=== PATIENT | male | born 1960 | race Caucasian/White ===

== ENCOUNTER 2020-03-23 14:13 | Outpatient (REF) | payer OTHER, SELFPAY ==
[2020-03-23 17:10] LABS: Alanine Aminotransferase 26 U/L (0-40); Albumin Level 4.2 g/dL (3.5-5.0); Alkaline Phosphatase 119 U/L (39-117); Aspartate Amino Transferase 21 U/L (5-37); Bilirubin Direct 0.2 mg/dL (0.0-0.5); Bilirubin Total 0.5 mg/dL (0.0-1.0); Total Protein 6.9 g/dL (6.5-8.0)
== END 2020-03-23 14:14 | disposition home or self-care (01) ==
LOC: HO.HMGCLDS 14:13
PROVIDERS: PCP Nurse Practitioner Family; Visit Provider Podiatrist
DX: B35.1 Tinea unguium (principal)
CPT/HCPCS: 80076

== ENCOUNTER 2020-06-30 13:30 | Outpatient (REF) | payer OTHER, SELFPAY ==
[2020-06-30 17:02] LABS: Glucose Urine UA NEG (NEG); Leukocyte Esterase Urine NEG (NEG); Nitrite Urine NEG (NEG); Specific Gravity - Urine 1.025 (1.005-1.025); Urine Blood NEG (NEG); Urine Ketones NEG (NEG); Urine Protein NEG (NEG-TRACE)
[2020-06-30 17:04] LABS: Appearance Urine CLEAR; Color Urine YELLOW
[2020-06-30 17:33] LABS: RBC Urine 0-2 /HPF (0); WBC Urine 0 /HPF (0-4)
== END 2020-06-30 13:31 | disposition home or self-care (01) ==
LOC: HO.HMGCLDS 13:30
PROVIDERS: PCP Nurse Practitioner Family; Visit Provider Nurse Practitioner Family
DX: R31.29 Other microscopic hematuria (principal)
CPT/HCPCS: 81001; 87086

== ENCOUNTER 2020-12-19 15:12 | Outpatient (REF) | payer OTHER, SELFPAY ==
[2020-12-19 16:55] LABS: Glucose Urine UA NEG (NEG); Leukocyte Esterase Urine NEG (NEG); Nitrite Urine NEG (NEG); Specific Gravity - Urine >= 1.030 (1.005-1.025); Urine Blood NEG (NEG); Urine Ketones NEG (NEG); Urine Protein NEG (NEG-TRACE)
[2020-12-19 16:59] LABS: Appearance Urine CLEAR; Color Urine YELLOW
[2020-12-19 17:00] LABS: Alanine Aminotransferase 37 U/L (0-40); Albumin Level 4.3 g/dL (3.5-5.0); Alkaline Phosphatase 108 U/L (39-117); Anion Gap 13 (12-20); Aspartate Amino Transferase 30 U/L (5-37); Bilirubin Total 0.8 mg/dL (0.0-1.0); Blood Urea Nitrogen 16 mg/dL (9-16); Calcium 9.2 mg/dL (8.4-10.2); Carbon Dioxide 23 mmol/L (22-29); Chloride 105 mmol/L (96-108); Cholesterol 141 mg/dL; Estimated Glomerular Filt Rate > 60; Glucose Fasting 83 mg/dL (60-99); HDL Cholesterol 36 mg/dL; LDL Cholesterol Calculated 82 mg/dl; Potassium 4.3 mmol/L (3.3-5.1); Sodium 137 mmol/L (135-145); Total Protein 6.9 g/dL (6.5-8.0); Triglycerides 118 mg/dL
[2020-12-19 17:38] LABS: Prostate Specific Antigen Scr 4.29 ng/mL (<0.05-4.0); TSH reflex Free T4 0.99 uIU/mL (0.32-4.0)
== END 2020-12-19 15:13 | disposition home or self-care (01) ==
LOC: HO.HMGCLDS 15:12
PROVIDERS: PCP Nurse Practitioner Family; Visit Provider Nurse Practitioner Family
DX: Z00.00 Encounter for general adult medical examination without abnormal findings (principal); Z12.5 Encounter for screening for malignant neoplasm of prostate
CPT/HCPCS: 36415; 80053; 80061; 81003; 84153; 84443

== ENCOUNTER 2020-12-29 14:24 | Outpatient (REF) | payer OTHER, SELFPAY ==
--- NOTE | ~2020-12-29 | US_ITS ---
EXAMINATION: US SCROTUM CLINICAL INFORMATION: Benign cyst of testis. COMPARISON: None TECHNIQUE: A sonogram of the scrotum was performed assessing loyola-scale appearance and color Doppler flow. Spectral Doppler analysis of the arterial and venous flow were performed in the testes bilaterally. FINDINGS: RIGHT: Right testicle measures 3.6 x 2.3 x 2.9 cm, volume 12.6 mL. There are 4 small echogenic foci suggestive of calcification, largest measuring 2 mm. No other focal testicular lesion is seen. Spectral Doppler analysis of the arterial and venous flow is normal in the right testis. Right epididymal head is normal in size. No right varicocele or hydrocele is seen. Right epididymal Doppler flow is normal. LEFT: Left testicle measures 4.1 x 2.4 x 3.1 cm, volume 16.0 mL. There are 2 small echogenic foci suggestive of calcifications. The largest measure 2 mm. Spectral Doppler analysis of the arterial and venous flow is normal in the left testis. Left epididymal head is normal in size. No left varicocele or hydrocele is seen. Left epididymal Doppler flow is normal. US/US scrotum IMPRESSION: No testicular or scrotal cyst seen. Small bilateral testicular calcifications.
== END 2020-12-29 14:25 | disposition home or self-care (01) ==
LOC: HO.HMGCX 14:24
PROVIDERS: PCP Nurse Practitioner Family; Visit Provider Nurse Practitioner Family
DX: N44.2 Benign cyst of testis (principal)
CPT/HCPCS: 76870

== ENCOUNTER → 2021-05-04 09:41 | Outpatient (BNVA) | payer OTHER, SELFPAY | PROVIDERS: PCP Nurse Practitioner Family; Visit Provider Urology ==

== ENCOUNTER 2021-06-28 14:13 | Outpatient (REF) | payer OTHER, SELFPAY ==
[2021-06-28 15:55] LABS: PSA,Total (Free>4and<10) 5.31 ng/mL (0.00-4.00)
[2021-06-29 12:40] LABS: Free Prostate Spec Ag 0.4 ng/mL; Percent Free Prostate Spec Ag 9 % (calc) (>25); Prostate Specific Ag Total 4.5 ng/mL (< OR = 4.0)
== END 2021-06-28 14:14 | disposition home or self-care (01) ==
LOC: HO.LAB 14:13
PROVIDERS: PCP Nurse Practitioner Family; Visit Provider Urology
DX: Z12.5 Encounter for screening for malignant neoplasm of prostate (principal); R97.20 Elevated prostate specific antigen [PSA]
CPT/HCPCS: 36415; 84153; 84154

== ENCOUNTER → 2021-07-14 14:50 | Outpatient (BNVA) | payer OTHER, SELFPAY | PROVIDERS: PCP Nurse Practitioner Family; Visit Provider Urology | DX: R97.20 Elevated prostate specific antigen [PSA] (principal) | CPT/HCPCS: Q3014 ==

== ENCOUNTER 2021-08-10 07:22 | Outpatient (REF) | payer OTHER, SELFPAY ==
[2021-08-10 07:51] VITALS: BP 148/92; PULSE 82; RESP 16; TEMP 36.6; O2SAT 96
[2021-08-10 07:52] VITALS: BMI 36.1
--- NOTE | 2021-08-10 08:17 | W.PM.OPN ---
Operative Note Operative Note Date of Service: 08/10/21 Narrative: Preoperative diagnosis: Elevated PSA Postoperative diagnosis: Elevated PSA Procedure: 1. transrectal ultrasound measurement of prostate 2. transrectal ultrasound-guided pudendal nerve block 3. transrectal ultrasound-guided prostate biopsy 12 core Surgeon: Dr. Raul Alcantara Anesthetic: Local Indications for procedure: Elevated PSA Prostate Cancer Procedure: After informed consent was verified, the patient was brought into the procedure area and lay left-hand side down on the table. Patient identity confirmed. Perioperative antibiotics confirmed. Iodine 10cc with Gel was placed per rectum Ultrasound probe was placed per rectum The prostate was measured in 3 dimensions Total volume equals 45 gm There were calcifications present in central zone - no cystic structures - prostate was homogeneous in nature A ultrasound-guided pudendal nerve block was performed using 10 cc of 1% lidocaine. 8 cc was placed at the base and 2 cc of the apex. A 12 core biopsy was performed with 6 cores each side. Two cores were taken at the apex, mid and base. Cores were spaced between lateral and medial. He tolerated the procedure well. Was able to ambulate to bathroom after 5 minutes. Printed instructions regarding antibiotic use and common side effects such as low-grade temperature and bleeding were given Pathology: 12 core prostate biopsy.
[2021-08-10 08:30] VITALS: BP 143/88; PULSE 82; RESP 16; O2SAT 96
== END 2021-08-10 07:23 | disposition home or self-care (01) ==
LOC: HO.MS 07:22
PROVIDERS: PCP Nurse Practitioner Family; Visit Provider Urology
PROC: (CPT 55700; principal; 2021-08-10 08:00)
DX: R97.20 Elevated prostate specific antigen [PSA] (principal)
CPT/HCPCS: 55700; 76942; 88305; 88342

== ENCOUNTER → 2021-08-18 11:52 | Outpatient (BNVA) | payer OTHER, SELFPAY | PROVIDERS: PCP Nurse Practitioner Family; Visit Provider Urology | DX: Z13.89 Encounter for screening for other disorder (principal) ==

== ENCOUNTER 2022-02-16 06:02 | Outpatient (REF) | payer OTHER, SELFPAY ==
[2022-02-16 06:07] LABS: MANUAL DIFF FLAG NO
[2022-02-16 07:12] LABS: Basophils Absolute Auto 0.1 X10*3/uL (0.0-0.2); Eosinophils Absolute Auto 0.9 X10*3/uL (0.0-0.4); Eosinophils Percent Auto 11.2 % (0-4); Hematocrit 46.9 % (42.0-52.0); Hemoglobin 15.4 g/dl (14.0-18.0); Imm Gran Abs Auto 0.02 X10*3/uL (0.00-0.03); Imm Gran Pct Auto 0.2 % (0.0-0.4); Lymphocytes Absolute Auto 2.4 X10*3/uL (1.2-4.9); Lymphocytes Percent Auto 29.5 % (20-40); Mean Corpuscular HGB Conc 32.8 g/dl (31.0-36.0); Mean Corpuscular Hemoglobin 29.6 pg (27.0-33.0); Mean Corpuscular Volume 90.2 fL (80.0-98.0); Mean Platelet Volume 9.6 fL (9.4-12.4); Monocytes Absolute Auto 0.8 X10*3/uL (0.1-1.2); Monocytes Percent Auto 9.7 % (2-11); Neutrophils Absolute Auto 3.9 x10*3/uL (2.0-8.3); Neutrophils Percent Auto 48.4 % (45-73); Platelet Count 298 X10*3/uL (160-400); Red Cell Distribution Width 12.3 % (11.0-16.0)
[2022-02-16 07:38] LABS: Appearance Urine Clear; Color Urine Yellow; Glucose Urine UA Negative (Negative); Leukocyte Esterase Urine Negative (Negative); Nitrite Urine Negative (Negative); PH 5.5 (5.0-9.0); Specific Gravity - Urine >= 1.030 (1.005-1.025); Urine Blood Negative (Negative); Urine Ketones Negative (Negative); Urine Protein Negative (Neg-Trace)
[2022-02-16 07:52] LABS: Alanine Aminotransferase 22 U/L (0-40); Albumin Level 4.2 g/dL (3.5-5.0); Alkaline Phosphatase 107 U/L (39-117); Anion Gap 14 (12-20); Aspartate Amino Transferase 23 U/L (5-37); Bilirubin Total 0.5 mg/dL (0.0-1.0); Blood Urea Nitrogen 17 mg/dL (9-16); Calcium 9.4 mg/dL (8.4-10.2); Carbon Dioxide 23 mmol/L (22-29); Chloride 105 mmol/L (96-108); Cholesterol 140 mg/dL; Estimated Glomerular Filt Rate > 60; Glucose Fasting 89 mg/dL (60-99); HDL Cholesterol 36 mg/dL; LDL Cholesterol Calculated 84 mg/dl; Potassium 4.4 mmol/L (3.3-5.1); Sodium 138 mmol/L (135-145); Total Protein 6.8 g/dL (6.5-8.0); Triglycerides 102 mg/dL
[2022-02-16 08:13] LABS: TSH reflex Free T4 1.03 uIU/mL (0.32-4.0)
== END 2022-02-16 06:03 | disposition home or self-care (01) ==
LOC: HO.LAB 06:02
PROVIDERS: Absent Provider Urology; PCP Nurse Practitioner Family; Visit Provider Nurse Practitioner Family
DX: Z12.5 Encounter for screening for malignant neoplasm of prostate (principal); N40.1 Benign prostatic hyperplasia with lower urinary tract symptoms; N13.8 Other obstructive and reflux uropathy; I10 Essential (primary) hypertension
CPT/HCPCS: 36415; 80053; 80061; 81003; 84153; 84443; 85025

== ENCOUNTER → 2022-02-22 08:24 | Outpatient (BNVA) | payer OTHER, SELFPAY | PROVIDERS: PCP Nurse Practitioner Family; Visit Provider Urology | DX: R97.20 Elevated prostate specific antigen [PSA] (principal); N40.1 Benign prostatic hyperplasia with lower urinary tract symptoms; N13.8 Other obstructive and reflux uropathy; I10 Essential (primary) hypertension; I60.9 Nontraumatic subarachnoid hemorrhage, unspecified | CPT/HCPCS: 51798 ==

== ENCOUNTER 2022-08-03 06:02 | Outpatient (REF) | payer OTHER, SELFPAY ==
[2022-08-03 08:16] LABS: Alanine Aminotransferase 39 U/L (0-40); Albumin Level 4.1 g/dL (3.5-5.0); Alkaline Phosphatase 100 U/L (39-117); Anion Gap 11 (12-20); Aspartate Amino Transferase 26 U/L (5-37); Bilirubin Total 0.5 mg/dL (0.0-1.0); Blood Urea Nitrogen 19 mg/dL (9-16); Calcium 9.4 mg/dL (8.4-10.2); Carbon Dioxide 25 mmol/L (22-29); Chloride 109 mmol/L (96-108); Cholesterol 149 mg/dL; Estimated Glomerular Filt Rate > 60; Glucose Fasting 90 mg/dL (60-99); HDL Cholesterol 36 mg/dL; LDL Cholesterol Calculated 86 mg/dl; Potassium 4.5 mmol/L (3.3-5.1); Sodium 140 mmol/L (135-145); Total Protein 6.4 g/dL (6.5-8.0); Triglycerides 136 mg/dL
[2022-08-03 08:33] LABS: TSH reflex Free T4 1.33 uIU/mL (0.32-4.0)
[2022-08-03 08:35] LABS: Prostate Specific Antigen 0.96 ng/mL (<0.05-4.0)
[2022-08-03 09:52] LABS: Color Urine Yellow; Glucose Urine UA Negative (Negative); Leukocyte Esterase Urine Negative (Negative); Nitrite Urine Negative (Negative); Urine Blood Negative (Negative); Urine Ketones Negative (Negative); Urine Protein Negative (Neg-Trace)
[2022-08-03 10:01] LABS: Appearance Urine Clear
== END 2022-08-03 06:03 | disposition home or self-care (01) ==
LOC: HO.LAB 06:02
PROVIDERS: Absent Provider Urology; PCP Nurse Practitioner Family; Visit Provider Nurse Practitioner Family
DX: R97.20 Elevated prostate specific antigen [PSA] (principal); I10 Essential (primary) hypertension; Z12.5 Encounter for screening for malignant neoplasm of prostate
CPT/HCPCS: 36415; 80053; 80061; 81003; 84153; 84443

== ENCOUNTER → 2022-08-21 10:54 | Outpatient (BNVA) | payer OTHER, SELFPAY | PROVIDERS: PCP Nurse Practitioner Family; Visit Provider Urology | DX: Z13.89 Encounter for screening for other disorder (principal) ==

== ENCOUNTER 2022-12-26 11:28 | Outpatient (AMB) | payer OTHER, SELFPAY ==
[2022-12-26 11:37] VITALS: BP 140/86; PULSE 84; O2SAT 94; BMI 36.8
--- NOTE | 2022-12-26 11:37 | MHC.PC.OV ---
Vital Signs 12/26/22 11:37 Height 5 ft 10 in Weight 256 lb 4 oz BMI 36.8 BP 140/86 H Blood Pressure Location Lt brachial Position Sitting Pulse 84 Pulse Source Pulse Oximeter Pulse Oximetry (%) 94 Oxygen Delivery Method Room Air Intake Visit Reasons: Annual Check me up Allergies No Known Allergies Allergy (Verified 12/26/22 11:39) Medication List - Last Reconciled 12/26/22 by ROSEANNE Mera finasteride 5 mg PO DAILY 90 days lisinopril 40 mg PO DAILY 90 days Tobacco use date assessed: 12/26/22 Dental Screening Dental Screen Date: 12/26/22 Did you have a dental visit in the last 12 months?: Yes Did you have a dental problem in the last 6 months where you did not have access to dental care?: No Was dental information given to patient?: Patient has dentist HPI Annual Check me up HPI Details Pt is here for a PE. Will order labs. Colon screen is up to date. PSA is up to date (sees urology). HTN: adding HCTZ. [facility] Medical History HTN (hypertension) Subarachnoid hemorrhage Social History Housing: House Patient Tobacco Use Status: Former Tobacco user Quit Date: quit 40 years e-Cigarette/Vaping Use: Never Used Second Hand Smoke Exposure: No (sister) service: No Current occupational status: employed Current occupation: [employer] Current occupational exposures/hazards: No Cognitive needs: No Hearing needs: No Vision needs: No Questionnaire Thrive Questionnaire Date Thrive assessed: 08/14/21 I am a: Patient What is your living situation today?: I have a steady place to live Within the past 12 months, did the food you bought not last and you didn't have the money to get more?: Never true Within the past 12 months, did you worry whether your food would run out before you got money to buy more?: Never true AUDIT C Alcohol Use Questionnaire (AUDIT-C) 1. How often do you have a drink containing alcohol?: Monthly or less 2. How many drinks containing alcohol do you have on a typical day when you are drinking?: 3 or 4 3. How often do you have six or more drinks on one occasion?: Never Total Score: 2 IRENE-7 AMB Questionnaire IRENE-7 Date IRENE - 7 assessed: 08/14/21 Feeling nervous, anxious, or on edge: 0 = Not at all Not being able to stop or control worryin = Not at all Worrying too much about different things: 0 = Not at all Trouble relaxin = Not at all Being so restless that it is hard to sit still: 0 = Not at all Becoming easily annoyed or irritable: 0 = Not at all Feeling afraid as if something awful might happen: 0 = Not at all Total IRENE-7 score (0-4 normal; 5-9 mild; 10-14 moderate; 15-21 severe): 0 Source: Developed by Drs. Marco Strong, Krystal Cordova, Luis Ybarra and colleagues, with an educational milly from [employer]. Review of Systems Const Denies chills and Denies fever(s) Eyes Denies blurry vision ENT Denies vertigo, Denies dizziness and Denies sore throat Card Denies chest pain at rest, Denies chest pain with activity, Denies diaphoresis, Denies dyspnea and Denies dyspnea on exertion Resp Denies cough, Denies dyspnea, Denies dyspnea on exertion and Denies wheezing GI Denies abdominal pain, Denies melena, Denies hematochezia, Denies constipation, Denies diarrhea and Denies loose stools Denies hematuria Musc Denies numbness and Denies tingling Skin/Breast Denies lesions Neuro Denies vertigo, Denies dizziness, Denies numbness and Denies tingling Psych Denies anxiety, Denies depression, Denies homicidal ideation, Denies suicidal ideation and Denies other (substance abuse) Aller/Immun Denies wheezing Physical exam (Primary Care) Vital Signs: Last Vital Signs Pulse 84 12/26/22 11:37 BP 140/86 H 12/26/22 11:37 Pulse Ox 94 12/26/22 11:37 Oxygen Delivery Method Room Air 12/26/22 11:37 BMI result Body Mass Index 36.8 Tobacco/Smoking Status: Tobacco use Status Tobacco use date assessed 12/26/22 12/26/22 11:41 Patient Tobacco Use Status Former Tobacco user 12/26/22 11:41 e-Cigarette/Vaping Use Never Used 12/26/22 11:41 Thrive Assessment: Date of Thrive Assessment Date Thrive assessed 08/14/21 12/26/22 11:41 Const General: cooperative Nutritional Appearance: obese Orientation/consciousness: patient oriented x3 HENMT Head: Yes normal to inspection, Yes normocephalic and Yes atraumatic Ears: TM's normal bilaterally Eyes General: appearance normal, both eyes and all related structures Alignment and Position: alignment normal and position normal Neck Neck: Yes normal visual inspection and Yes no lymphadenopathy Thyroid: Thyroid normal Resp Effort & Inspection: normal respiratory effort Auscultation: clear to auscultation bilaterally Cardio Rate: regular rate Rhythm: regular rhythm Heart sounds: S1 normal heart sound present, S2 normal heart sound present and no murmurs GI Palpation (GI): Soft to palpation and nontender Auscultation: normal bowel sounds Male General Exam: Yes normal external exam Penis: normal penis Scrotum: scrotum normal, testes descended bilaterally and no inguinal hernias Testes: no testicular mass Skin Rashes: no rashes Neuro General: patient oriented x3, moves all extremities, no focal motor deficits and deep tendon reflexes 2+ bilaterally Romberg Test: Negative Extrem Other: trace to BLE Psych Appearance: grossly normal Mental Status: mental status grossly normal Speech and movement: Normal speech and movement present Affect: normal affect Attitude: cooperative Thought process: Normal thought process present Thought content: Normal thought content present Insight: Good insight present (Psych) Judgement: Good judgement present (Psych) Assessment and Plan Assessment & Plan (1) Physical exam: Code(s): Z00. - Encounter for general adult medical examination without abnormal findings Orders: Orders Comprehensive [place]. Panel Fast Today Z00.00 - Encounter for general adult medical examination without abnormal findings Lipid Panel Today Z00.00 - Encounter for general adult medical examination without abnormal findings TSH reflex Free T4 Today Z00.00 - Encounter for general adult medical examination without abnormal findings Complete Blood Count Auto Diff Today Z00.00 - Encounter for general adult medical examination without abnormal findings UA CC w/rflx Micro + Cult Today Z00.00 - Encounter for general adult medical examination without abnormal findings Medications: New hydrochlorothiazide 12.5 mg PO DAILY 90 tabs 0RF 90 days Coding Level of Care Code Est Pt Prev Care 40-64y(90881) Diagnoses Physical exam Z00.00
== END 2022-12-26 12:16 | disposition home or self-care (01) ==
PROVIDERS: PCP Nurse Practitioner Family; Visit Provider Nurse Practitioner Family
DX: Z00.00 Encounter for general adult medical examination without abnormal findings (principal)
CPT/HCPCS: 99396

== ENCOUNTER 2023-01-22 05:54 | Outpatient (REF) | payer OTHER, SELFPAY ==
[2023-01-22 06:09] LABS: MANUAL DIFF FLAG NO
[2023-01-22 07:24] LABS: Basophils Percent Auto 0.5 % (0-2); Eosinophils Absolute Auto 0.3 X10*3/uL (0.0-0.4); Eosinophils Percent Auto 3.2 % (0-4); Hemoglobin 15.9 g/dl (14.0-18.0); Imm Gran Abs Auto 0.03 X10*3/uL (0.00-0.03); Imm Gran Pct Auto 0.4 % (0.0-0.4); Lymphocytes Absolute Auto 2.7 X10*3/uL (1.2-4.9); Lymphocytes Percent Auto 34.5 % (20-40); Mean Corpuscular HGB Conc 33.1 g/dl (31.0-36.0); Mean Corpuscular Hemoglobin 29.6 pg (27.0-33.0); Mean Corpuscular Volume 89.2 fL (80.0-98.0); Mean Platelet Volume 9.5 fL (9.4-12.4); Monocytes Absolute Auto 0.8 X10*3/uL (0.1-1.2); Monocytes Percent Auto 10.6 % (2-11); Neutrophils Absolute Auto 3.9 x10*3/uL (2.0-8.3); Neutrophils Percent Auto 50.8 % (45-73); Platelet Count 247 X10*3/uL (160-400); Red Blood Count 5.38 X10*6/uL (4.60-5.80); Red Cell Distribution Width 12.7 % (11.0-16.0); White Blood Count 7.7 X10*3/uL (4.8-10.8)
[2023-01-22 07:55] LABS: Alanine Aminotransferase 34 U/L (0-40); Albumin Level 4.1 g/dL (3.5-5.0); Alkaline Phosphatase 91 U/L (39-117); Anion Gap 11 (12-20); Aspartate Amino Transferase 30 U/L (5-37); Bilirubin Total 0.5 mg/dL (0.0-1.0); Blood Urea Nitrogen 14 mg/dL (9-16); Calcium 9.6 mg/dL (8.4-10.2); Carbon Dioxide 26 mmol/L (22-29); Chloride 104 mmol/L (96-108); Cholesterol 149 mg/dL (<200); Estimated Glomerular Filt Rate > 60; Glucose Fasting 88 mg/dL (60-99); HDL Cholesterol 34 mg/dL (>40); LDL Cholesterol Calculated 87 mg/dL (<100); Potassium 3.9 mmol/L (3.3-5.1); Sodium 137 mmol/L (135-145); Triglycerides 140 mg/dL (<150)
[2023-01-22 09:42] LABS: Appearance Urine Clear; Color Urine Yellow; Glucose Urine UA Negative (Negative); Leukocyte Esterase Urine Negative (Negative); Nitrite Urine Negative (Negative); PH 6.5 (5.0-9.0); Specific Gravity - Urine 1.025 (1.005-1.025); Urine Blood Negative (Negative); Urine Ketones Negative (Negative); Urine Protein Negative (Neg-Trace)
== END 2023-01-22 05:55 | disposition home or self-care (01) ==
LOC: HO.LAB 05:54
PROVIDERS: PCP Nurse Practitioner Family; Visit Provider Nurse Practitioner Family
DX: Z00.00 Encounter for general adult medical examination without abnormal findings (principal); Z20.2 Contact with and (suspected) exposure to infections with a predominantly sexual mode of transmission
CPT/HCPCS: 36415; 80053; 80061; 81003; 84443; 85025

== ENCOUNTER 2023-02-13 14:32 | Outpatient (REF) | payer OTHER, SELFPAY ==
[2023-02-13 16:00] LABS: Prostate Specific Antigen 1.04 ng/mL (<0.05-4.0)
== END 2023-02-13 14:33 | disposition home or self-care (01) ==
LOC: HO.LAB 14:32
PROVIDERS: PCP Nurse Practitioner Family; Visit Provider Urology
DX: Z12.5 Encounter for screening for malignant neoplasm of prostate (principal); R97.20 Elevated prostate specific antigen [PSA]
CPT/HCPCS: 36415; 84153

== ENCOUNTER 2023-02-20 11:12 | Outpatient (AMB) | payer OTHER, SELFPAY ==
--- NOTE | 2023-02-20 11:31 | MHC.OFFVIS ---
Intake Intake Visit Reasons: 6m/PSA(set) Intake Note: Patient is Present for Follow Up PSA Urology Medication: Finasteride Antibiotic Allergies: None Blood Thinners: None Pharmacy: [facility] Allergies No Known Allergies Allergy (Verified 02/20/23 11:35) Medication List - Last Reconciled 02/20/23 by Raul Alcantara MD finasteride 5 mg PO DAILY 90 days hydrochlorothiazide 12.5 mg PO DAILY 90 days lisinopril 40 mg PO DAILY 90 days HPI HPI Comments History of Present Illness Details Jimmy is a pleasant male. He is a patient of Dr. Barreto. He seen for the following urologic issue - elevated PSA PSA 1.0 Continue finasteride every other day 12m f/u Happy with current voiding parameters Elevated PSA Presentation initially with elevated PSA and mild LUTS symptoms Current therapy finasteride Laboratories - 11/08 2.7, 12/10 4.3, 07/11 4.5 F 9%, 02/10 1.3, 08/12 0.96, 02/11 1.0 Prostate biopsy 08/11 [facility] Medical History HTN (hypertension) Subarachnoid hemorrhage Social History Housing: House Patient Tobacco Use Status: Former Tobacco user Quit Date: quit 40 years e-Cigarette/Vaping Use: Never Used Second Hand Smoke Exposure: No (sister) service: No Current occupational status: employed Current occupation: [employer] Current occupational exposures/hazards: No Cognitive needs: No Hearing needs: No Vision needs: No Review of Systems Const Denies chills and Denies fever(s) Card Reports no additional complaints and Denies syncope Resp Denies cough GI Denies abdominal pain and Denies heartburn Reports as per HPI and Denies change in libido Neuro Denies syncope Psych Denies change in libido Endo Denies change in libido Physical Exam Const General: cooperative, healthy appearing, comfortable and no acute distress Orientation/consciousness: patient oriented x3 HEENT Face and sinus: Yes normal facial exam Mouth: moist mucous membranes Neck Neck: Yes normal visual inspection, Yes full ROM and Yes trachea midline Chest Chest palpation & inspection: normal inspection of the chest Resp Effort & Inspection: normal respiratory effort, able to speak in complete sentences and no respiratory distress GI Inspection: Yes normal to inspection Back/Spine/Pelvis Cervical Spine: normal cervical lordosis Thoracic/Lumbar Spine: thoracic and lumbar spine normal to inspection Skin General skin exam: no rashes or lesions noted Neuro General: patient oriented x3, gait normal, tone normal and moves all extremities Extrem General: Yes normal to inspection and Yes capillary refill normal Assessment & Plan Assessment & Plan (1) BPH w urinary obs/LUTS: Code(s): N40.1 - Benign prostatic hyperplasia with lower urinary tract symptoms; N13.8 - Other obstructive and reflux uropathy (2) Elevated PSA: Code(s): R97.20 - Elevated prostate specific antigen [PSA] Plan One year follow-up PSA Orders: Orders Prostate Specific Antigen 364 Days N13.8 - Other obstructive and reflux uropathy, N40.1 - Benign prostatic hyperplasia with lower urinary tract symptoms Patient Instructions: Imaging studies, laboratory and physical exam results were discussed and reviewed in detail. No major barriers to patient understanding were identified. An opportunity to ask questions regarding the treatment plan was provided. All questions were answered. The patient expressed understanding and agreement with the above treatment plan. The patient is aware they should contact our office by phone for worsening of their current condition or the appearance of new urologic symptoms. Compliance is encouraged with any medications and followup testing that is ordered. It is a privilege to participate in the urologic care of your patient. If you have any questions or concerns regarding treatment for the above conditions, or other urologic issues, please do not hesitate to contact me. The office telephone contact is [phone]. This note is constructed using voice recognition software. While every effort has been made to ensure accuracy sourcing assistant errors may have been included. Yours sincerely, Dr Raul Alcantara MD, DO [facility] - Urology Providers of Expert, Compassionate Care for the Genitourinary System Coding Level of Care Code Est Pt Level 3 (08033) Diagnoses BPH w urinary obs/LUTS N40.1; N13.8 Elevated PSA R97.20
== END 2023-02-20 11:48 | disposition home or self-care (01) ==
PROVIDERS: Visit Provider Urology
DX: N40.1 Benign prostatic hyperplasia with lower urinary tract symptoms (principal); N13.8 Other obstructive and reflux uropathy; R97.20 Elevated prostate specific antigen [PSA]
CPT/HCPCS: 99213

== ENCOUNTER → 2023-02-20 11:12 | Outpatient (BNVA) | payer OTHER, SELFPAY | PROVIDERS: Visit Provider Urology ==

== ENCOUNTER 2023-05-27 15:05 | Outpatient (AMB) | payer OTHER, SELFPAY ==
--- NOTE | 2023-05-27 15:13 | MHC.PC.OV ---
Vital Signs 05/27/23 15:17 Height 5 ft 10 in Weight 252 lb 8 oz BMI 36.2 BP 118/78 Blood Pressure Location Rt brachial Position Sitting Pulse 81 Pulse Source Pulse Oximeter Pulse Oximetry (%) 93 Oxygen Delivery Method Room Air Intake Visit Reasons: 6 month follow up Intake Note: Pt is here to follow up for his HTN Allergies No Known Allergies Allergy (Verified 05/27/23 15:19) Tobacco use date assessed: 05/27/23 Dental Screening Dental Screen Date: 05/27/23 Did you have a dental visit in the last 12 months?: Yes Did you have a dental problem in the last 6 months where you did not have access to dental care?: No Was dental information given to patient?: Patient has dentist HPI 6 month follow up HPI Details HTN: Blood pressure is stable, managed with lisinopril 40mg. Pt reports that his blood pressure has been stable at home as well. Denies chest pain, shortness of breath, headache, dizziness, and blurred vision. [facility] Medical History HTN (hypertension) Subarachnoid hemorrhage Social History Housing: House Patient Tobacco Use Status: Former Tobacco user Quit Date: quit 40 years e-Cigarette/Vaping Use: Never Used Second Hand Smoke Exposure: No (sister) service: No Current occupational status: employed Current occupation: [employer] Current occupational exposures/hazards: No Cognitive needs: No Hearing needs: No Vision needs: No Questionnaire PHQ-9 Over the last 2 weeks, how often have you been bothered by any of the following problems? 1. Little interest or pleasure in doing things: not at all 2. Feeling down, depressed, or hopeless: not at all 3. Trouble falling or staying asleep, or sleeping too much: not at all 4. Feeling tired or having little energy: not at all 5. Poor appetite or overeating: not at all 6. Feeling bad about yourself - or that you are a failure or have let yourself or your family down: not at all 7. Trouble concentrating on things, such as reading the newspaper or watching television: not at all 8. Moving or speaking so slowly that other people could have noticed. Or the opposite - being so fidgety or restless that you have been moving around a lot more than usual: not at all 9. Thoughts that you would be better off or of hurting yourself in some way: not at all Total score: 0 Source: Developed by Drs. Marco Strong, Krystal Cordova, Luis Ybarra and colleagues, with an educational milly from [employer]. Thrive Questionnaire Date Thrive assessed: 05/27/23 I am a: Patient What is your living situation today?: I have a steady place to live Within the past 12 months, did the food you bought not last and you didn't have the money to get more?: Never true Within the past 12 months, did you worry whether your food would run out before you got money to buy more?: Never true Do you have trouble paying for medicines?: No Do you have trouble getting transportation to medical appointments?: No Do you have trouble paying your heating and electricity bill?: No Do you have trouble taking care of your child, family member or friend?: No Do you have trouble with day-to-day activities such as bathing, preparing meals, shopping, managing finances, etc.?: No Are you currently unemployed and looking for a job?: No Are you interested in more education?: No THRIVE Score: 0 AUDIT C Alcohol Use Questionnaire (AUDIT-C) 1. How often do you have a drink containing alcohol?: Monthly or less 2. How many drinks containing alcohol do you have on a typical day when you are drinking?: 1 or 2 3. How often do you have six or more drinks on one occasion?: Less than monthly Total Score: 2 IRENE-7 AMB Questionnaire IRENE-7 Date IRENE - 7 assessed: 05/27/23 Feeling nervous, anxious, or on edge: 0 = Not at all Not being able to stop or control worryin = Not at all Worrying too much about different things: 0 = Not at all Trouble relaxin = Not at all Being so restless that it is hard to sit still: 0 = Not at all Becoming easily annoyed or irritable: 0 = Not at all Feeling afraid as if something awful might happen: 0 = Not at all Total IRENE-7 score (0-4 normal; 5-9 mild; 10-14 moderate; 15-21 severe): 0 Source: Developed by Drs. Marco Strong, Krystal Cordova, Luis Ybarra and colleagues, with an educational milly from [employer]. Review of Systems Const Reports as per HPI Physical exam (Primary Care) Vital Signs: Last Vital Signs Pulse 81 05/27/23 15:17 BP 118/78 05/27/23 15:17 Pulse Ox 93 05/27/23 15:17 Oxygen Delivery Method Room Air 05/27/23 15:17 BMI result Body Mass Index 36.2 Tobacco/Smoking Status: Tobacco use Status Tobacco use date assessed 05/27/23 05/27/23 15:21 Patient Tobacco Use Status Former Tobacco user 05/27/23 15:15 e-Cigarette/Vaping Use Never Used 05/27/23 15:15 PHQ-9: PHQ-9 Score PHQ-9: Total score 0 05/27/23 15:50 Thrive Assessment: Date of Thrive Assessment Date Thrive assessed 05/27/23 05/27/23 15:15 Const General: cooperative Nutritional Appearance: obese Orientation/consciousness: patient oriented x3 Resp Effort & Inspection: normal respiratory effort Auscultation: clear to auscultation bilaterally Cardio Rate: regular rate Rhythm: regular rhythm Heart sounds: S1 normal heart sound present, S2 normal heart sound present and Murmur heart sound present systolic (faint, aortic region) Neuro General: patient oriented x3 Psych Appearance: grossly normal Mental Status: mental status grossly normal Speech and movement: Normal speech and movement present Affect: normal affect Attitude: cooperative Thought process: Normal thought process present Thought content: Normal thought content present Insight: Good insight present (Psych) Judgement: Good judgement present (Psych) Assessment and Plan Assessment & Plan (1) HTN (hypertension): Code(s): I10 - Essential (primary) hypertension Plan: Stable, labs ordered (2) Systolic murmur: Code(s): R01.1 - Cardiac murmur, unspecified Plan: Echo ordered Plan The patient agreed to the use of a bio medical technician for this encounter. Scribed for ROSEANNE Philip by Ava Mast bio medical technician, on 05/27/2023 at 15:45 EST. Orders: Orders Comprehensive [place]. Panel Fast Today I10 - Essential (primary) hypertension TSH reflex Free T4 Today I10 - Essential (primary) hypertension UA CC w/rflx Micro + Cult Today I10 - Essential (primary) hypertension Lipid Panel Today I10 - Essential (primary) hypertension CA echo transthoracic complete Today R01.1 - Cardiac murmur, unspecified Complete Blood Count Auto Diff Today I10 - Essential (primary) hypertension Coding Level of Care Code Est Pt Level 3 (14849) Diagnoses HTN (hypertension) I10 Systolic murmur R01.1
[2023-05-27 15:17] VITALS: BP 118/78; PULSE 81; O2SAT 93; BMI 36.2
== END 2023-05-27 16:35 | disposition home or self-care (01) ==
PROVIDERS: PCP Nurse Practitioner Family; Visit Provider Nurse Practitioner Family
DX: I10 Essential (primary) hypertension (principal); R01.1 Cardiac murmur, unspecified
CPT/HCPCS: 99213

== ENCOUNTER 2023-06-18 06:00 | Outpatient (REF) | payer OTHER, SELFPAY ==
[2023-06-18 06:20] LABS: MANUAL DIFF FLAG NO
[2023-06-18 07:43] LABS: Basophils Percent Auto 0.6 % (0-2); Eosinophils Absolute Auto 0.2 X10*3/uL (0.0-0.4); Eosinophils Percent Auto 2.6 % (0-4); Hematocrit 46.1 % (42.0-52.0); Hemoglobin 15.3 g/dl (14.0-18.0); Imm Gran Abs Auto 0.02 X10*3/uL (0.00-0.03); Imm Gran Pct Auto 0.3 % (0.0-0.4); Lymphocytes Absolute Auto 2.3 X10*3/uL (1.2-4.9); Lymphocytes Percent Auto 31.3 % (20-40); Mean Corpuscular HGB Conc 33.2 g/dl (31.0-36.0); Mean Corpuscular Volume 87.3 fL (80.0-98.0); Mean Platelet Volume 9.3 fL (9.4-12.4); Monocytes Absolute Auto 0.8 X10*3/uL (0.1-1.2); Monocytes Percent Auto 11.5 % (2-11); Neutrophils Absolute Auto 3.9 x10*3/uL (2.0-8.3); Neutrophils Percent Auto 53.7 % (45-73); Platelet Count 275 X10*3/uL (160-400); Red Blood Count 5.28 X10*6/uL (4.60-5.80); White Blood Count 7.2 X10*3/uL (4.8-10.8)
[2023-06-18 08:29] LABS: Alanine Aminotransferase 33 U/L (0-40); Alkaline Phosphatase 97 U/L (39-117); Anion Gap 9 (12-20); Aspartate Amino Transferase 24 U/L (5-37); Bilirubin Total 0.4 mg/dL (0.0-1.0); Blood Urea Nitrogen 18 mg/dL (9-16); Calcium 9.3 mg/dL (8.4-10.2); Carbon Dioxide 25 mmol/L (22-29); Chloride 108 mmol/L (96-108); Cholesterol 119 mg/dL (<200); Estimated Glomerular Filt Rate > 60; Glucose Fasting 93 mg/dL (60-99); HDL Cholesterol 32 mg/dL (>40); LDL Cholesterol Calculated 71 mg/dL (<100); Potassium 4.2 mmol/L (3.3-5.1); Sodium 138 mmol/L (135-145); Total Protein 6.8 g/dL (6.5-8.0); Triglycerides 82 mg/dL (<150)
[2023-06-18 08:41] LABS: Appearance Urine Clear; Color Urine Yellow; Glucose Urine UA Negative (Negative); Leukocyte Esterase Urine Negative (Negative); Nitrite Urine Negative (Negative); PH 5.5 (5.0-9.0); Specific Gravity - Urine 1.025 (1.005-1.025); Urine Blood Negative (Negative); Urine Ketones Negative (Negative); Urine Protein Negative (Neg-Trace)
== END 2023-06-18 06:01 | disposition home or self-care (01) ==
LOC: HO.LAB 06:00
PROVIDERS: PCP Nurse Practitioner Family; Visit Provider Nurse Practitioner Family
DX: I10 Essential (primary) hypertension (principal)
CPT/HCPCS: 36415; 80053; 80061; 81003; 84443; 85025

== ENCOUNTER → 2023-06-19 14:47 | Outpatient (REF) | payer OTHER, SELFPAY ==
--- NOTE | 2023-06-19 14:50 | CA_ITS ---
Transthoracic Echocardiogram Patient (Last, First, Middle): Jimmy Jauregui, Gender: Male Date of : 1960 Age: 62 Procedure Date: 06/19/2023 Procedure Type: Transthoracic Echocardiogram Location: OP Height: 177.8 cm Weight: 112.49 kg BSA: 2.29 m2 Heart Rate: bpm BP: 152 / 86 mmHg Afloat Cryptologic Manager: LARS Referring MD: Eduardo Putnam [facility] Symptoms: R01.1 - Cardiac murmur, unspecified Study Quality: Fair, contrast ECG Rhythm: Sinus Conclusions: - The left ventricular systolic function is normal. The calculated ejection fraction is 64% by biplane method. - No obvious valvular pathology seen on this study. - There is mild dilatation of the ascending aorta measuring 4.20 cm. Findings Procedure Information Contrast agent, definity, is being given per protocol without apparent complications. Left Ventricle Normal left ventricular cavity size. There is normal left ventricular wall thickness. The left ventricular systolic function is normal. The calculated ejection fraction is 64% by biplane method. There is no evidence of regional wall motion abnormalities. Diastolic function is normal for age. Right Ventricle Normal right ventricular cavity size and systolic function. Atria Both atria are normal in size. Aortic Valve There is a normal trileaflet aortic valve. There is mild calcification of the aortic valve. There is no aortic valve stenosis. There is no aortic valve regurgitation. Mitral Valve The mitral valve appears normal. There is no mitral valve regurgitation. There is no mitral valve stenosis. Pulmonic Valve The pulmonic valve is likely normal. Tricuspid Valve There is no tricuspid valve regurgitation. Tricuspid regurgitation envelope is inadequate for calculation of right ventricular systolic pressure. Great Vessels There is mild dilatation of the ascending aorta measuring 4.20 cm. Venous The inferior vena cava is normal in size and collapses greater than 50% with inspiration. Pericardium/Pleural There is no evidence of pericardial effusion. Prior Study Comparison No prior study available for comparison. Recommendations, Care & Conclusions No obvious valvular pathology seen on this study. Measurements 2D Linear Measurements IVSd: 0.84 0.6-0.9/0.6-1.0 cm LVIDd: 4.79 3.9-5.3/4.2-5.9 cm LVIDd Index: 2.09 2.4-3.2/2.2-3.1 cm/m2 LVIDs: 2.82 2.0-3.6 cm LVPWd: 0.97 0.7-1.1 cm LA Diam: 3.20 2.7-3.8/3.0-4.0 cm LAIDs Index: 1.40 1.5-2.3 cm/m2 LV Mass: 185.51 67-162/88-224 g LV Mass Index: 81.01 43-95/49-115 g/m2 LVOT Diam: 2.20 3.0+(-)1.3 cm 2D Systolic Function EF 4C: 61.40 >55% EF 2C: 66.80 >55% EF BiP: 64.20 >55% Mitral Valve MV Pk E: 0.81 MV PK A: 0.75 MV Decel Time: 279.00 E/A: 1.10 E'Lateral: 9.79 E'Medial: 7.72 E/E' Med: 10.50 E/E' Lat: 8.30 PHT: 82.00 MVA PHT: 2.68 Decel [place]: 2.90 Aortic Valve AoV Pk Rodney: 1.49 AoV Mn Rodney: 0.97 AoV VTI: 0.26 AoV Pk Grad: 9.00 Aov Mn Grad: 5.00 LAI Cont.VTI: 3.16 LVOT LVOT Pk Rodney: 1.04 LVOT Mn Rodney: 0.65 LVOT VTI: 0.22 LVOT Pk Grad: 4.00 LVOT Mn Grad: 2.00 LVOT Diam: 2.20 LVOT Area: 3.80 Diastolic Function MV Pk E: 0.81 MV Pk A: 0.75 E/A: 1.10 E'Medial: 7.72 E/E' Med: 10.50 E' Laterial: 9.79 E/E' Lat: 8.30 Right Ventricle TAPSE (mm): 28.00 TVS' Rodney: 19.20 Tricuspid Valve RA Press: 3.00 Great Vessels Aorta Sinus of Valsalva: 4.09 2.0-3.[address] [place]: 3.31 1.7-3.4 cm Ao Asc: 4.20 2.1-3.4 cm Updated in Other Vendor System with Status of Final Mo Aguila MD electronically signed on 06/20/2023 6:00:34 AM with status of Final
== END ==
LOC: HO.CARD 14:47
PROVIDERS: PCP Nurse Practitioner Family; Visit Provider Nurse Practitioner Family
DX: R01.1 Cardiac murmur, unspecified (principal)
CPT/HCPCS: 93306; Q9957

== ENCOUNTER → 2023-06-19 14:50 | Outpatient (BNV) | payer OTHER, SELFPAY | PROVIDERS: PCP Nurse Practitioner Family; Visit Provider Internal Medicine | DX: I35.8 Other nonrheumatic aortic valve disorders (principal) | CPT/HCPCS: 93306 ==

== ENCOUNTER 2024-01-14 14:44 | Outpatient (AMB) | payer OTHER, SELFPAY ==
[2024-01-14 14:47] VITALS: BP 128/78; PULSE 80; O2SAT 97; BMI 36.9
--- NOTE | 2024-01-14 14:47 | MHC.PC.OV ---
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 Will order labs. Colon screen is up to date. Pt sees urology for his PSA. Pt has a hx of ascending aorta dilatation. Will repeat echo in 5 months. [facility] Medical History (Updated 01/14/24 @ 15:17 by ROSEANNE Mera) Ascending aorta dilatation HTN (hypertension) Subarachnoid hemorrhage Surgical History No pertinent past surgical history Social History Housing: House Patient Tobacco Use Status: Former Tobacco user e-Cigarette/Vaping Use: Never Used Second Hand Smoke Exposure: No (sister) service: No Current occupational status: employed Current occupation: [employer] Current occupational exposures/hazards: No Cognitive needs: No Hearing needs: No Vision needs: No Questionnaire PHQ-9 Over the last 2 weeks, how often have you been bothered by any of the following problems? 1. Little interest or pleasure in doing things: not at all 2. Feeling down, depressed, or hopeless: not at all 3. Trouble falling or staying asleep, or sleeping too much: not at all 4. Feeling tired or having little energy: not at all 5. Poor appetite or overeating: not at all 6. Feeling bad about yourself - or that you are a failure or have let yourself or your family down: not at all 7. Trouble concentrating on things, such as reading the newspaper or watching television: not at all 8. Moving or speaking so slowly that other people could have noticed. Or the opposite - being so fidgety or restless that you have been moving around a lot more than usual: not at all 9. Thoughts that you would be better off or of hurting yourself in some way: not at all Total score: 0 Depression Screening Interpretation: Negative Depression Screening Done: Yes 39877 - PHQ-9 Billing: Yes Source: Developed by Drs. Marco Strong, Krystal Cordova, Luis Ybarra and colleagues, with an educational milly from [employer]. Thrive Questionnaire Date Thrive assessed: 01/07/24 I am a: Patient What is your living situation today?: I have a steady place to live Within the past 12 months, did the food you bought not last and you didn't have the money to get more?: Never true Within the past 12 months, did you worry whether your food would run out before you got money to buy more?: Never true Do you have trouble paying for medicines?: No Do you have trouble getting transportation to medical appointments?: No Do you have trouble paying your heating and electricity bill?: No Do you have trouble taking care of your child, family member or friend?: No Do you have trouble with day-to-day activities such as bathing, preparing meals, shopping, managing finances, etc.?: No Are you interested in more education?: Yes Please select the resources that you would like help with: None Currently or been in a relationship where the following occur: No concerns reported THRIVE Score: 0 AUDIT C Alcohol Use Questionnaire (AUDIT-C) 1. How often do you have a drink containing alcohol?: Monthly or less 2. How many drinks containing alcohol do you have on a typical day when you are drinking?: 1 or 2 3. How often do you have six or more drinks on one occasion?: Never Total Score: 1 Score Reviewed/Action Taken: Yes IRENE-7 AMB Questionnaire IRENE-7 Date IRENE - 7 assessed: 01/14/24 Feeling nervous, anxious, or on edge: 0 = Not at all Not being able to stop or control worryin = Not at all Worrying too much about different things: 0 = Not at all Trouble relaxin = Not at all Being so restless that it is hard to sit still: 0 = Not at all Becoming easily annoyed or irritable: 0 = Not at all Feeling afraid as if something awful might happen: 0 = Not at all Total IRENE-7 score (0-4 normal; 5-9 mild; 10-14 moderate; 15-21 severe): 0 Source: Developed by Drs. Marco Strong, Krystal Cordova, Luis Ybarra and colleagues, with an educational milly from [employer]. IRENE-7 Assessment Billing IRENE-7 Assessment Tool: IRENE-7 Assessment 20613 Review of Systems Const Denies chills and Denies fever(s) Eyes Denies blurry vision ENT Denies vertigo, Denies dizziness and Denies sore throat Card Denies chest pain at rest, Denies chest pain with activity, Denies diaphoresis, Denies dyspnea and Denies dyspnea on exertion Resp Denies cough, Denies dyspnea, Denies dyspnea on exertion and Denies wheezing GI Denies abdominal pain, Denies melena, Denies hematochezia, Denies constipation, Denies diarrhea and Denies loose stools Denies hematuria Musc Denies numbness and Denies tingling Skin/Breast Denies lesions Neuro Denies vertigo, Denies dizziness, Denies numbness and Denies tingling Psych Denies anxiety, Denies depression, Denies homicidal ideation, Denies suicidal ideation and Denies other (substance abuse) Aller/Immun Denies wheezing Physical exam (Primary Care) Vital Signs: Last Vital Signs Pulse 80 01/14/24 14:47 BP 128/78 01/14/24 14:47 Pulse Ox 97 01/14/24 14:47 Oxygen Delivery Method Room Air 01/14/24 14:47 BMI result Body Mass Index 36.9 Tobacco/Smoking Status: Tobacco use Status Tobacco use date assessed 05/27/23 01/14/24 14:50 Patient Tobacco Use Status Former Tobacco user 01/14/24 14:50 e-Cigarette/Vaping Use Never Used 01/14/24 14:50 PHQ-9: PHQ-9 Score PHQ-9: Total score 0 01/14/24 15:01 Depression Screening Interpretation: Negative Thrive Assessment: Date of Thrive Assessment Date Thrive assessed 01/07/24 01/14/24 14:50 Currently or been in a relationship where the following occur: No concerns reported Const General: cooperative Nutritional Appearance: obese Orientation/consciousness: patient oriented x3 HENMT Head: Yes normal to inspection, Yes normocephalic and Yes atraumatic Ears: TM's normal bilaterally Eyes General: appearance normal, both eyes and all related structures Alignment and Position: alignment normal and position normal Neck Neck: Yes normal visual inspection, Yes no lymphadenopathy and Yes supple Resp Effort & Inspection: normal respiratory effort Auscultation: clear to auscultation bilaterally Cardio Rate: regular rate Rhythm: regular rhythm Heart sounds: S1 normal heart sound present, S2 normal heart sound present and Murmur heart sound present systolic (faint) GI Palpation (GI): Soft to palpation and nontender Auscultation: normal bowel sounds Male General Exam: Yes normal external exam Penis: normal penis Scrotum: scrotum normal, testes descended bilaterally and no inguinal hernias Testes: no testicular mass Skin Rashes: no rashes Neuro General: patient oriented x3, moves all extremities, no focal motor deficits and deep tendon reflexes 2+ bilaterally Romberg Test: Negative Psych Appearance: grossly normal Mental Status: mental status grossly normal Speech and movement: Normal speech and movement present Affect: normal affect Attitude: cooperative Thought process: Normal thought process present Thought content: Normal thought content present Insight: Good insight present (Psych) Judgement: Good judgement present (Psych) Assessment and Plan Assessment & Plan (1) Physical exam: Code(s): Z00.00 - Encounter for general adult medical examination without abnormal findings Plan: Labs ordered (2) Ascending aorta dilatation: Code(s): I77.810 - Thoracic aortic ectasia Plan: echo in 5 months Plan The patient agreed to the use of a medical scientific liaison for this encounter. Scribed for ROSEANNE Philip by Ava Mast medical scientific liaison, on 01/14/2024 at 15:05 EST. Orders: Orders Complete Blood Count Auto Diff Today Z00.00 - Encounter for general adult medical examination without abnormal findings Comprehensive [place]. Panel Fast Today Z00.00 - Encounter for general adult medical examination without abnormal findings TSH reflex Free T4 Today Z00.00 - Encounter for general adult medical examination without abnormal findings UA CC w/rflx Micro + Cult Today Z00.00 - Encounter for general adult medical examination without abnormal findings Lipid Panel Today Z00.00 - Encounter for general adult medical examination without abnormal findings CA echo transthoracic complete 5 Months I77.810 - Thoracic aortic ectasia Coding Level of Care Code Est Pt Prev Care 40-64y(36649) Diagnoses Physical exam Z00.00 Ascending aorta dilatation I77.810 Additional Codes IRENE-7 Assessment Billing - IRENE-7 Assessment Tool: IRENE-7 Assessment 35443 ([id number])
== END 2024-01-14 16:08 | disposition home or self-care (01) ==
PROVIDERS: PCP Nurse Practitioner Family; Visit Provider Nurse Practitioner Family
DX: Z00.00 Encounter for general adult medical examination without abnormal findings (principal); I77.810 Thoracic aortic ectasia

== ENCOUNTER → 2024-01-14 14:44 | Outpatient (BNVA) | payer OTHER, SELFPAY | PROVIDERS: PCP Nurse Practitioner Family; Visit Provider Nurse Practitioner Family | DX: Z00.00 Encounter for general adult medical examination without abnormal findings (principal); I77.810 Thoracic aortic ectasia | CPT/HCPCS: 96127 ==

== ENCOUNTER 2024-01-17 06:00 | Outpatient (REF) | payer OTHER, SELFPAY ==
[2024-01-17 06:15] LABS: MANUAL DIFF FLAG NO
[2024-01-17 07:15] LABS: Basophils Absolute Auto 0.1 X10*3/uL (0.0-0.2); Basophils Percent Auto 0.7 % (0-2); Eosinophils Absolute Auto 0.3 X10*3/uL (0.0-0.4); Eosinophils Percent Auto 4.7 % (0-4); Hematocrit 46.4 % (42.0-52.0); Hemoglobin 15.5 g/dl (14.0-18.0); Imm Gran Abs Auto 0.02 X10*3/uL (0.00-0.03); Imm Gran Pct Auto 0.3 % (0.0-0.4); Lymphocytes Absolute Auto 2.4 X10*3/uL (1.2-4.9); Lymphocytes Percent Auto 33.5 % (20-40); Mean Corpuscular HGB Conc 33.4 g/dl (31.0-36.0); Mean Corpuscular Hemoglobin 29.5 pg (27.0-33.0); Mean Corpuscular Volume 88.2 fL (80.0-98.0); Mean Platelet Volume 9.3 fL (9.4-12.4); Monocytes Absolute Auto 0.7 X10*3/uL (0.1-1.2); Monocytes Percent Auto 10.3 % (2-11); Neutrophils Absolute Auto 3.6 x10*3/uL (2.0-8.3); Neutrophils Percent Auto 50.5 % (45-73); Platelet Count 262 X10*3/uL (160-400); Red Blood Count 5.26 X10*6/uL (4.60-5.80); Red Cell Distribution Width 12.7 % (11.0-16.0); White Blood Count 7.1 X10*3/uL (4.8-10.8)
[2024-01-17 07:23] LABS: Appearance Urine Clear; Color Urine Yellow; Glucose Urine UA Negative (Negative); Leukocyte Esterase Urine Negative (Negative); Nitrite Urine Negative (Negative); PH 6.5 (5.0-9.0); Urine Blood Negative (Negative); Urine Ketones Negative (Negative); Urine Protein Negative (Neg-Trace)
[2024-01-17 08:05] LABS: Alanine Aminotransferase 36 U/L (0-40); Alkaline Phosphatase 87 U/L (39-117); Anion Gap 11 (12-20); Aspartate Amino Transferase 28 U/L (5-37); Bilirubin Total 0.5 mg/dL (0.0-1.0); Blood Urea Nitrogen 16 mg/dL (9-16); Calcium 9.4 mg/dL (8.4-10.2); Carbon Dioxide 24 mmol/L (22-29); Chloride 107 mmol/L (96-108); Cholesterol 136 mg/dL (<200); Estimated Glomerular Filt Rate > 60; Glucose Fasting 97 mg/dL (60-99); HDL Cholesterol 35 mg/dL (>40); LDL Cholesterol Calculated 74 mg/dL (<100); Potassium 4.2 mmol/L (3.3-5.1); Sodium 138 mmol/L (135-145); Total Protein 6.8 g/dL (6.5-8.0); Triglycerides 136 mg/dL (<150)
[2024-01-17 08:21] LABS: TSH reflex Free T4 1.03 uIU/mL (0.32-4.0)
== END 2024-01-17 06:01 | disposition home or self-care (01) ==
LOC: HO.LAB 06:00
PROVIDERS: PCP Nurse Practitioner Family; Visit Provider Nurse Practitioner Family
DX: Z00.00 Encounter for general adult medical examination without abnormal findings (principal)
CPT/HCPCS: 36415; 80053; 80061; 81003; 84443; 85025

== ENCOUNTER 2024-02-19 06:54 | Outpatient (REF) | payer OTHER, SELFPAY ==
[2024-02-19 08:08] LABS: Prostate Specific Antigen 3.12 ng/mL (<0.05-4.0)
== END 2024-02-19 06:55 | disposition home or self-care (01) ==
LOC: HO.LAB 06:54
PROVIDERS: PCP Nurse Practitioner Family; Visit Provider Urology
DX: N40.1 Benign prostatic hyperplasia with lower urinary tract symptoms (principal); N13.8 Other obstructive and reflux uropathy; Z12.5 Encounter for screening for malignant neoplasm of prostate
CPT/HCPCS: 36415; 84153

== ENCOUNTER 2024-02-21 14:13 | Outpatient (AMB) | payer OTHER, SELFPAY ==
--- NOTE | 2024-02-21 14:33 | A.OFFVIS_ITS ---
Intake Visit Reasons: 1Y PSA(SET) Intake Note: Patient is present for PSA Follow Up Urology Med: Finasteride Antibiotic Allergy: None Blood Thinner: None PSA: 02/19/24 PSA: 3.12 It Help Desk Manager Required: No Accompanied by: Self / Same As Patient Allergies No Known Allergies Allergy (Verified 02/21/24 14:33) HPI Comments Details: Jimmy is a pleasant male. He is a patient of Dr. Barreto. He seen for the following urologic issue - elevated PSA Yearly follow-up PSA has risen to 3.1 - had six-month 48 hours Coincide with reduction and finasteride dose Happy with current voiding parameters Twelve month review Elevated PSA Presentation initially with elevated PSA and mild LUTS symptoms Current therapy finasteride Laboratories - 11/08 2.7, 12/10 4.3, 07/11 4.5 F 9%, 02/10 1.3, 08/12 0.96, 02/11 1.0, 02/12 3.1 Prostate biopsy 08/11 [facility] Medical History Ascending aorta dilatation HTN (hypertension) Subarachnoid hemorrhage Surgical History No pertinent past surgical history Social History Housing: House Patient Tobacco Use Status: Former Tobacco user e-Cigarette/Vaping Use: Never Used Second Hand Smoke Exposure: No (sister) service: No Current occupational status: employed Current occupation: [employer] Current occupational exposures/hazards: No Cognitive needs: No Hearing needs: No Vision needs: No Review of Systems Const Denies chills and Denies fever(s) Card Reports no additional complaints and Denies syncope Resp Denies cough GI Denies abdominal pain and Denies heartburn Reports as per HPI and Denies change in libido Neuro Denies syncope Psych Denies change in libido Endo Denies change in libido Physical Exam Const General: cooperative, healthy appearing, comfortable and no acute distress Orientation/consciousness: patient oriented x3 HEENT Face and sinus: Yes normal facial exam Mouth: moist mucous membranes Neck Neck: Yes normal visual inspection, Yes full ROM and Yes trachea midline Chest Chest palpation & inspection: normal inspection of the chest Resp Effort & Inspection: normal respiratory effort, able to speak in complete sente nces and no respiratory distress GI Inspection: Yes normal to inspection Back/Spine/Pelvis Cervical Spine: normal cervical lordosis Thoracic/Lumbar Spine: thoracic and lumbar spine normal to inspection Skin General skin exam: no rashes or lesions noted Neuro General: patient oriented x3, gait normal, tone normal and moves all extremities Extrem General: Yes normal to inspection and Yes capillary refill normal Assessment & Plan Assessment & Plan (1) Elevated PSA: Code(s): R97.20 - Elevated prostate specific antigen [PSA] Category: Medical (2) BPH w urinary obs/LUTS: Code(s): N40.1 - Benign prostatic hyperplasia with lower urinary tract symptoms; N13.8 - Other obstructive and reflux uropathy Category: Medical Plan Twelve month follow-up PSA Orders: Orders Prostate Specific Antigen 364 Days N13.8 - Other obstructive and reflux uropathy, N40.1 - Benign prostatic hyperplasia with lower urinary tract symptoms Patient Instructions: Imaging studies, laboratory and physical exam results were discussed and reviewed in detail. No major barriers to patient understanding were identified. An opportunity to ask questions regarding the treatment plan was provided. All questions were answered. The patient expressed understanding and agreement with the above treatment plan. The patient is aware they should contact our office by phone for worsening of their current condition or the appearance of new urologic symptoms. Compliance is encouraged with any medications and followup testing that is ordered. It is a privilege to participate in the urologic care of your patient. If you have any questions or concerns regarding treatment for the above conditions, or other urologic issues, please do not hesitate to contact me. The office telephone contact is [phone]. This note is constructed using voice recognition software. While every effort has been made to ensure accuracy safety assistant errors may have been included. Yours sincerely, Dr Raul Alcantara MD, DO [facility] - Urology Providers of Expert, Compassionate Care for the Genitourinary System Coding Level of Care Code Est Pt Level 4 (81291) Diagnoses Elevated PSA R97.20 BPH w urinary obs/LUTS N40.1; N13.8
== END 2024-02-21 14:57 | disposition home or self-care (01) ==
LOC: HO.HUSH 14:14
PROVIDERS: PCP Nurse Practitioner Family; Visit Provider Urology
DX: R97.20 Elevated prostate specific antigen [PSA] (principal); N40.1 Benign prostatic hyperplasia with lower urinary tract symptoms; N13.8 Other obstructive and reflux uropathy
CPT/HCPCS: 99214

== ENCOUNTER → 2024-02-21 14:13 | Outpatient (BNVA) | payer OTHER, SELFPAY | PROVIDERS: PCP Nurse Practitioner Family; Visit Provider Urology ==

== ENCOUNTER 2024-04-30 13:06 | Outpatient (AMB) | payer OTHER, SELFPAY ==
[2024-04-30 13:30] VITALS: BP 140/70; PULSE 80; TEMP 36.7; O2SAT 95; BMI 36.7
--- NOTE | 2024-04-30 13:30 | MHC.OFFWIV ---
Intake Vital Signs 04/30/24 13:30 Height 5 ft 10 in Weight 256 lb BMI 36.7 BP 140/70 H Blood Pressure Location Lt brachial Position Sitting Pulse 80 Pulse Source Pulse Oximeter Temp 98.0 F Temp Source Oral Pulse Oximetry (%) 95 Oxygen Delivery Method Room Air Intake Visit Reasons: EP RT eye concerns Intake Note: Pt is here today c/o Rt eye irritating: Eye exam OS 20/20, OD, 20/25, OU 20/20 uncorrected lens Patient Tobacco Use Status: Former Tobacco user Allergies No Known Allergies Allergy (Verified 04/30/24 13:30) HPI HPI Comments History of Present Illness Details History of Present Illness - The patient is a 63-year-old male presenting with right eye pain. - Onset was about one week ago with persistent pain noted particularly when closing the eye, despite using [id number] eyedrops. - The eye is red but without crusting upon waking, and no visual disturbances are reported. - The patient recalls a prior incident last spring involving eye trauma from weed whacking; however, this was resolved at that time. - Recent actions for relief included eyedrops, yet pain and discomfort remain, affecting the top part of the eyeball. - No current visual changes or foreign body sensation like sandiness reported. - Past medical attempts centered around temporary solutions with no noted alleviation of the current discomfort. 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 Skin: No rashes or lesions noted Neuro: Patient oriented x3 Extremities: Normal to inspection [facility] Medical History Ascending aorta dilatation HTN (hypertension) Subarachnoid hemorrhage Surgical History No pertinent past surgical history Social History (Reviewed 02/21/24 @ 14:33 by PATRICK Dale Housing: House Patient Tobacco Use Status: Former Tobacco user e-Cigarette/Vaping Use: Never Used Second Hand Smoke Exposure: No (sister) service: No Current occupational status: employed Current occupation: [employer] Current occupational exposures/hazards: No Cognitive needs: No Hearing needs: No Vision needs: No Review of Systems Const All systems reviewed & are unremarkable except as noted in HPI and below Physical Exam Vital Signs: Last Vital Signs Temp 98.0 F 04/30/24 13:30 Pulse 80 04/30/24 13:30 BP 140/70 H 04/30/24 13:30 Pulse Ox 95 04/30/24 13:30 Oxygen Delivery Method Room Air 04/30/24 13:30 BMI result Body Mass Index 36.7 Office Procedures Fluorescein eye exam Details: applied 2 drops tetracaine to right eye, dye and light - observed corneal abrasion 1 o'clock to 6 o'clock Assessment & Plan Assessment & Plan (1) Corneal abrasion, right: Code(s): S05.01XA - Injury of conjunctiva and corneal abrasion without foreign body, right eye, initial encounter Qualifiers: Encounter type: initial encounter Qualified Code(s): S05.01XA - Injury of conjunctiva and corneal abrasion without foreign body, right eye, initial encounter Plan: Plan The identified corneal abrasion in the right eye requires therapeutic management with an antibiotic ointment to ensure prevention of infection and promote healing. The prescribed erythromycin ointment is to be applied four times daily during waking hours for a duration of one week. Continuation of the upcoming ophthalmology consultation is advised for a comprehensive evaluation and monitoring of the healing process. Patient was informed and verbally consented to the use of an ambient scribe for clinic note documentation during this visit. Medications: New erythromycin Apply to right eye 4 times a day while awake 0.5 inches ophthalmic-Right QID 3.5 grams 0RF Coding Level of Care Code Est Pt Level 4 (83009) Diagnoses Abrasion of right cornea, initial encounter S05.01XA Encounter type: initial encounter
== END 2024-04-30 14:30 | disposition home or self-care (01) ==
PROVIDERS: PCP Nurse Practitioner Family; Visit Provider Physician Assistant
DX: S05.01XA Injury of conjunctiva and corneal abrasion without foreign body, right eye, initial encounter (principal)

== ENCOUNTER 2024-05-08 13:31 | Outpatient (REF) | payer OTHER, SELFPAY ==
--- NOTE | ~2024-05-08 | XR_ITS ---
EXAMINATION: XR FOOT, RIGHT CLINICAL INFORMATION: M25.571 - Pain in right ankle and joints of right foot COMPARISON: None available. TECHNIQUE: AP, lateral, and oblique views of the right foot. FINDINGS: There is mild loss of PIP joint space third digit with periarticular spurring. Mild loss of DIP joints all digits is noted. There is a large calcaneal heel and retrocalcaneal enthesophytes. The ankle mortise and subtalar joints are normal. No visible acute fracture or dislocation seen. The soft tissues are normal. XR/XR foot RT min 3V IMPRESSION: Large calcaneal heel and retrocalcaneal enthesophytes. 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 No visible acute fracture or dislocation seen Electronically signed by: Ryan Cortes MD 05/13/2024 10:03 AM TALIB
== END 2024-05-08 13:32 | disposition home or self-care (01) ==
LOC: HO.HMGCX 13:31
PROVIDERS: PCP Nurse Practitioner Family; Visit Provider Physician Assistant
DX: M25.571 Pain in right ankle and joints of right foot (principal)
CPT/HCPCS: 73630

== ENCOUNTER 2024-05-08 13:31 | Outpatient (AMB) | payer OTHER, SELFPAY ==
[2024-05-08 14:08] VITALS: BP 160/84; PULSE 82; O2SAT 95
--- NOTE | 2024-05-08 14:08 | AM.OFFWIN_ITS ---
Intake Vital Signs 05/08/24 14:08 Weight 260 lb BP 160/84 H Blood Pressure Location Rt brachial Position Sitting Pulse 82 Pulse Source Pulse Oximeter Pulse Oximetry (%) 95 Oxygen Delivery Method Room Air Intake Visit Reasons: EP RT Foot pain Intake Note: Patient here for right foot pain that has been present for a few years but has worsened over the few weeks. Patient Tobacco Use Status: Former Tobacco user Allergies No Known Allergies Allergy (Verified 05/08/24 14:11) Do you need a note to return to daycare/school/sports/work: No HPI HPI Comments History of Present Illness Details History of Present Illness - The patient is a 63-year-old male pres enting with paresthesia of the right foot. - Reports persistent tingling and numbne ss across all toes of the right foot, experiencing symptoms chronically. - Symptom onset is 1 year but worse in t he past week. Symptoms persist despite attempts at alleviation. - The patient suspects its origin as gou t but is uncertain; he denies diabetes mellitus. - Notably, swelling is not evident, thou gh inadvertently indicated as possibly present without precise assessment. - Tingling and numbness do not involve w eakness. - The patient describes overall foot so reness but states there is joint pain in all toe joints when he walks. - Exercises elevation to modulate sympto ms, suggestive of alleviated inflammation. Physical Exam General: Cooperative, healthy appearing, comfortable, no acute distress and well developed Orientation: Patient oriented x3 Limitations: No limitations Head: Normal to inspection Ears: Hearing grossly normal bilaterally Nose: Normal external nose present Face and sinus: Normal facial exam Eyes: Appearance normal, both eyes and all related structures Neck: Normal visual inspection and Yes full ROM Respiratory: Normal respiratory effort and able to speak in complete sentences. Skin: No rashes or lesions noted Neuro: Patient oriented x3 Extremities: as below [facility] Medical History Ascending aorta dilatation HTN (hypertension) Subarachnoid hemorrhage Surgical History No pertinent past surgical history Social History Housing: House Patient Tobacco Use Status: Former Tobacco user e-Cigarette/Vaping Use: Never Used Second Hand Smoke Exposure: No (sister) service: No Current occupational status: employed Current occupation: [employer] Current occupational exposures/hazards: No Cognitive needs: No Hearing needs: No Vision needs: No Review of Systems Const All systems reviewed & are unremarkable except as noted in HPI and below Physical Exam Vital Signs: Last Vital Signs Pulse 82 05/08/24 14:08 BP 160/84 H 05/08/24 14:08 Pulse Ox 95 05/08/24 14:08 Oxygen Delivery Method Room Air 05/08/24 14:08 Extrem Right lower extremity: normal to inspection, full ROM, normal capillary refill and foot Details: normal capillary refill, normal to inspection, toes with normal ROM, no edema, vascular exam Details: normal capillary refill, tendon exam Details: active flexion normal and active extension normal and motor- sensory exam Details: light-touch normal; no tenderness, no unusual warmth, no abrasion, no laceration and no ecchymosis Left lower extremity: normal to inspection, full ROM, normal capillary refill and foot Details: normal capillary refill, normal to inspection and toes with normal ROM Assessment & Plan Assessment & Plan (1) Arthralgia of toe of right foot: Code(s): M25.571 - Pain in right ankle and joints of right foot Plan: Plan The assessment for the patient's paresthesia of the right foot includes infla mmation and localized nerve compression as the potential etiologies. Although gout remains part of the differential diagnosis, it is considered improbable due to the symptom pattern. An x-ray of the right foot is ordered to investigate potential structural changes such as arthritis. Aleve ATC x 3 days then only PRN and ice is recommended to manage possible nerve pressure from inflammation. A follow-up plan includes discussing with PCP to see if an EMG is appropriate, providing an in-depth analysis of nerve functionality. The patient received education on distinguishing Aleve's therapeutic role from similar agents like Advil. My interpretation of XR shows small spurs but no acute fx or dislocation, unclear if arthritis in toe joints showing, pending final read. Patient was informed and verbally consented to the use of an ambient scribe for clinic note documentation during this visit. (2) Paresthesia of right foot: Code(s): R20.2 - Paresthesia of skin Plan: Plan The assessment for the patient's paresthesia of the right foot includes inflammation and localized nerve compression as the potential etiologies. Although gout remains part of the differential diagnosis, it is considered improbable due to the symptom pattern. An x-ray of the right foot is ordered to investigate potential structural changes such as arthritis. Aleve ATC x 3 days then only PRN and ice is recommended to manage possible nerve pressure from inflammation. A follow-up plan includes discussing with PCP to see if an EMG is appropriate, providing an in-depth analysis of nerve functionality. The patient received education on distinguishing Aleve's therapeutic role from similar agents like Advil. Patient was informed and verbally consented to the use of an ambient scribe for clinic note documentation during this visit. Orders: Orders XR foot RT min 3V Today M25.571 - Pain in right ankle and joints of right foot, R20.2 - Paresthesia of skin Medications: New naproxen 500 mg PO Q12H PRN 20 tabs 0RF pain Coding Level of Care Code Est Pt Level 4 (00885) Diagnoses Arthralgia of toe of right foot M25.571 Paresthesia of right foot R20.2
== END 2024-05-08 14:39 | disposition home or self-care (01) ==
PROVIDERS: PCP Nurse Practitioner Family; Visit Provider Physician Assistant
DX: M25.571 Pain in right ankle and joints of right foot (principal); R20.2 Paresthesia of skin

== ENCOUNTER → 2024-05-08 14:37 | Outpatient (BNV) | payer OTHER, SELFPAY | PROVIDERS: PCP Nurse Practitioner Family; Visit Provider Radiology Diagnostic Radiology | DX: M77.51 Other enthesopathy of right foot and ankle (principal) | CPT/HCPCS: 73630 ==

== ENCOUNTER → 2024-06-05 14:38 | Outpatient (REF) | payer OTHER, SELFPAY ==
--- OUTSIDE RECORDS SUMMARY | 2024-06-05 14:41 | XMS_ITS | Patient Health Record ---
Author Organization [facility] Address [address] [place] [address] Care Team Providers Care Spectral Scientist Name Role Phone STEVE LEVY Primary Care Provider Marco Caceres [phone] REASON FOR REFERRAL No Information MEDICATIONS Medication SIG (Take, Route, Fr equency, Duration) Notes Start Date End Date Status MoviPrep 100 GM as directed Orally a s directed for 1 dose 04/28/2014 Active Lisinopril 5 MG 1 tablet Orally Once a day Active Multivitamin Orally Active SOCIAL HISTORY Sex Assigned At : Social History Observation Description Sex Assigned At Unknown PROBLEMS Problem Type ICD Code Onset Dates Problem Status W/U Status Risk SNOMED Code Notes Problem Colon cancer screening (V76.51) Active confirmed Colon cancer screening (202128606) Problem Other specified pre-operative examination (V72.83) Active confirmed Pre-surgery evaluation (799590919) PLAN OF TREATMENT Future Test Test Name Order Date COLONOSCOPY 04/27/2014 Next Appt Details Provider Name:Marco Buchanan , 08/26/2024 03:40:00 PM, [address], [address], [place], [address], Insurance Providers Payer Name Payer Address Payer Phone Subscriber Number Group Number Insured Name Patient Relationship to Insured Coverage Start Date Coverage End Date [facility] [address] [place] [phone] [id number] RANDY JOYA Self - patient is the insured MEDICAL (GENERAL) HISTORY Medical History History ICD Code Hypertension Denies PR,DM,CVA,Lung disease,renal dise ase
--- OUTSIDE RECORDS SUMMARY | 2024-06-05 14:41 | XMS_ITS ---
Author Organization [facility] Address [address] [place] [address] Care Team Providers Care Senior Linux Systems Engineer Name Role Phone Eduardo Urena Primary Care Provider Unav ailable Black, Gill Unavailable [phone] REASON FOR VISIT wants appt Encounters Encounter Location Date Provider Diagnosis [facility] [address] [place] [address] 04/30/2024 Gill Black Plan Of Treatment No Information Progress Notes * Jimmy JOYA MDOB:1960 (63 yo M)Acc No.[id number]:04/30/2024 Patient:?Jimmy JOYA :1960???Age:63 Y???Sex:Male Address:[facility] [place] [address] * true * Date:? Generated for Naomi ruvalcaba/Fabiola/eTransmitting on:?06/05/2024 02:41 PM EST
--- OUTSIDE RECORDS SUMMARY | 2024-06-05 14:41 | XMS_ITS ---
Author Organization [facility] kenneth Annona Address [address] [place] [address] Care Team Providers Care Tax Agent Name Role Phone Eduardo Urena Primary Care Provider Unav ailable Black, Gill Unavailable [phone] Allergies No Known Allergies Results Component Value Reference Range Notes X ray : Foot, right 3V Reviewed date:06/03/2024 04:22:54 PM Interpretation:See Examination above Performing Lab: Notes/Report: See Examination above REASON FOR VISIT Last PCP visit 04/2024, Foot pain Medications Medication SIG (Take, Route, Frequency, Duration) Notes Start Date End Date Status Lisinopril 5 MG 1 tablet Orally Once a day for 30 day(s) Active Terbinafine HCl 250 MG 1 TABLET ONCE A D AY FOR 7 DAYS STOP FOR 3 WEEKS REPEAT CYCLE ORALLY 90 DAYS for 90 days Not-Taking Finasteride Active Multi For Him - as directed Orally Active Social History Tobacco Use: Social History Observation Description Date Details (start date - stop date) Never Smoker NA - NA Alcohol Screen Question Answer Notes Did you have a drink contain ing alcohol in the past year? Yes How often did you have a dri nk containing alcohol in the past year? 2 to 4 times a month (2 points) How often did you have 6 or more drinks on one occasion in the past year? Monthly (2 points) Points 4 Interpretation Positive Tobacco use other than smoking: Question Answer Notes Are you an other tobacco user? No Tobacco Control (Standard) Question Answer Notes Tobacco use: Nonsmoker Additional Findings: Tobacco non-user Current no nsmoker Problems Problem Type SNOMED Code ICD Code Onset Dates Problem Status W/U Status Risk Notes Problem Mononeuropathy of lower limb (295475412) Neuritis of right foot (G57.91) Active confirmed Problem 925155168 Hammer toe of right foot (M20.41) Active confirmed Problem Localized, primary osteoarthritis of the ankle and/or foot (577429671) 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.071) Active confirmed Vital Signs Height 5ft 10in in 06/03/2024 Weight 245 lbs 06/03/2024 BMI 35.15 kg/m2 06/03/2024 Encounters Encounter [facility] Date [facility] [place] [address] [facility]/03/[facility]24 Gill Toscano Pain in right foot M79.671 ; Neuritis of right foot G57.91 ; Hammer toe of right foot M20.41 and Osteoarthritis of right ankle and foot M19.071 Assessments Encounter Date Diagnosis (ICD Code) Assessment Notes Treatment Notes Treatment Clinical Notes Section Notes 06/03/2024 Pain in right foot (ICD-10 - M79.671) 06/03/2024 Neuritis of right foot (ICD-10 - G57.91) 06/03/2024 Hammer toe of right foot (ICD-10 - M20.41) 06/03/2024 Osteoarthritis of right ankle and foot (ICD-10 - M19.071) Plan Of Treatment Next Appt Details Follow Up: prn, Reason: Progress Notes * Jimmy JOYA MDOB:1960 (63 yo M)Acc No.[id number]:06/03/2024 Progress Note Patient:?Jimmy JOYA Provider:?Gill Toscano DPM :1960???Age:63 Y???Sex:Male Geo e:06/03/2024 Address:[facility] [address] [place] Pcp:CARLA Philip Subjective: * Chief Complaints: * ???Last PCP visit 04/2024Foot pain * HPI: ???Foot Pain:?Nature:?, numbness.?Location:?, RIGHT great toe.?Duration:?, several years.?Onset:?unknown.?Course:?worse.?Aggravated:?any pressure, especially barefoot.?Treatments:?rest/alter normal daily activity.?Misc:?Pt relates absence of lower spinal issues of bulging/slipped disk, stenosis, arthritis, or surgery.? * ROS:?General/Constitutional:?Nausea?denies.?Vomiting?denies.?Hunger Thirst?denies.?Loss appetite?denies.?Chills?denies.?Fatigue?denies.?Fever?denies.?Night Sweats?denies.?Unexplained weight loss?denies.?Unexplained weight gain?denies.?HEENTM:?Dentures?denies.?Dizziness?denies.?Glasses/contacts?denies.?Retinopathy?de nies.?Blurred/double vision?denies.?TMJ?denies.?Discharge/drainage?denies.?Implants?denies.?Sore throat?denies.?Dental implants?denies.?Hard of hearing ?denies.?Difficulty chewing/swallowing/speaking?denies.?Nose bleeds?denies.?Sore mouth?denies.?Respiratory:?On Oxygen?denies.?Pneumonia/pleurisy?denies.?Bronchitis?denies.?Emphysema?denies.?C oughing?denies.?Cough blood?denies.?Shortness of breath?denies.?Wheezing?denies.?Cardiovascular:?Pacemaker?denies.?MVP?denies.?WPW?denies.?CHF?denies.?Heart attack?denies.?Septal defect?denies.?Rapid beat?denies.?Chest pain ?denies.?Atrial Fib.?denies.?Murmur/Palpitations?denies.?Gastrointestinal:?Hemorrhoids?denies.?Stomach/Abdominal pain?denies.?Dark blood stool?denies.?Irritable bowel ?denies.?Constipation?denies.?Diarrhea?denies.?Hematology:?Swelling?denies.?Clots?denies.?Varicose Veins?denies.?Bruising?denies.?Bleeding problem?denies.?Genitourinary:?Blood urine?denies.?Frequent/Painfu/urination/bladder control?denies.?Kidney stones?denies.?Infection (UTI)?denies.?Nephropathy?denies.?sex trans dis (STD)?denies.?Prostate?denies.?Musculoskeletal:?Hammertoes?denies.?Bunions?denies.?Back Pain?denies.?Muscle Cramps/ Resting?denies.?Muscle cramps / walking?denies.?Generalized aches and pains?denies.?Weakness?denies.?Integ.:?Joya?denies.?Scars?denies.?Corns/calluses?denies.?Ingrown nails?denies.?Painful nails?denies.?Open Sores?denies.?Rashes?denies.?Neurologic:?Difficulty sleeping?denies.?Brain disorder?denies.?Numbness?, admits.?Balance trouble?denies.?Confusion?denies.?Fainting/blackouts?denies.?Tingling?denies.?Tr emors?denies.? * Medical History:? * Surgical History:?colonoscop y 06/2014 * Hospitalization/Major Diagno stic Procedure:?No Hospitalization History. * Family History:?Mother: dece ased, coronary artery disease, congestive heart failure.?Father: , coronary artery disease, congestive heart failure.? * Social History:?Tobacco Use:?Tobacco use other than smoking?Are you an other tobacco user??No ?Tobacco Control (Standard)?Tobacco use:?Nonsmoker ?Additional Findings: Tobacco non-user?Current nonsmoker ???Drugs/Alcohol:?Drugs?Have you used drugs other than those for medical reasons in the past 12 months??No ?Alcohol Screen?Did you have a drink containing alcohol in the past year??Yes ?How often did you have a drink containing alcohol in the past year??2 to 4 times a month (2 points) ?How often did you have 6 or more drinks on one occasion in the past year??Monthly (2 points) ?Points?4 ?Interpretation?Positive ???Miscellaneous:?Caffeine: yes, 2-3 cups per day. ?Children: yes, 3. ?Exercise: yes, walking. ?Marital status: . 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 * Medications:?TakingFinasteri de Multi For Him - Tablet as directed Orally Lisinopril 5 MG Tablet 1 tablet Orally Once a day Taking Finasteride Taking Multi For Him - Tablet as directed Orally Taking Lisinopril 5 MG Tablet 1 tablet Orally Once a day Not-Taking/PRNTerbinafine HCl 250 MG Tablet 1 TABLET ONCE A DAY FOR 7 DAYS STOP FOR 3 WEEKS REPEAT CYCLE ORALLY 90 DAYS Medication List reviewed and reconciled with the patientNot-Taking/PRN Terbinafine HCl 250 MG Tablet 1 TABLET ONCE A DAY FOR 7 DAYS STOP FOR 3 WEEKS REPEAT CYCLE ORALLY 90 DAYS Medication List reviewed and reconciled with the patient * Allergies:?N.K.D.A.yes[Aller gies Verified] Objective: * Vitals:?Ht: 5ft 10in, Wt:245 , BMI:35.15, Shoe size: 10W, Ht-cm: 177.8 cm, Wt-k.13 kg. * Examination: ???General Examination: ?GENERAL APPEARANCE:?Reveals a pleasant, alert, well nourished, well developed, well hydrated individual, who demonstrates proper attention to hygene/body habitus, and is in no acute distress.?ORIENTED:?person, place, and time.?Neurological: ?SENSORY:?Neurological exam reveals intact sensorium, pain sensation normal, vibration sensation intact, pinprick sensation is normal in the lower extremities, , Pt relates, numbness right great toe.?TINEL'S COMPRESSION:?Negative tarsal tunnel, carli pedis, and medial calcaneal nerves, Saphenous nerve distribution.?Neuroma Pain: ?PALPATION:?No interspace pain noted on palpation.?Vascular: ?DP PULSES (B):? 2/4, B/L.?PT PULSES (B):? 2/4, B/L.?CAPILLARY FILL TIME:?immediate, all digits, B/L.?TROPHIC CONDITION-TEXTURE/ELASTICITY/TURGOR/HAIR GROWTH (B):?normal, B/L.?TEMPERTURE GRADIENT (C):?normal, warm to cool, proximal to distal, B/L, B/L.?PIGMENTATION:?normal, B/L.?Orthopedic: ?MUSCLE STRENGTH:?5/5 all groups in a symmetrical fashion, B/L.?GAIT ABNORMALITY:?Pronated, abducted angle and base of gate.?DIGITAL DEFORMITIES:?Digital contracture, PIPJ, 2-5 B/L, incompl-reducible with WB, or to push-up test, no over, nor underlapping.?X-Rays - IMAGING REPORT: ?Clinical Indication(s):?Evaluate Biomechanical Deformity , Evaluate for Fracture.?Views:?3 views of Foot , AP , LAT , LO , RIGHT??Taken by trained?Podiatric Shortage Worker (?__ ).?Findings:?normal bone and soft tissue density consistent for patients age and sex , dorsal degenerative changes of the tarsal joints, positive infra-calcaneal exostosis, positive retro-calcaneal exostosis.?Digits:?show asymmetrical joint space narrowing at the PIPJ consistent with clinical finding of hammertoe deformity, show enlarged/hypertrophied phalangeal head(s) consistent for clinical finding of hammertoe deformity.?HAV:?there is asymmetrical narrowing of the 1st MPJ joint space, there is squaring of the 1st MTH, increased Hallux Interphalangeus angle with asymmetrical IPJ and joint degeneration.?Fracture:?Negative fractures identified.? Assessment: * Assessment: 1.?Pain in right foot - M79. 671???2.?Neuritis of right foot - G57.91 (Primary)???Specify :Acute problem, Complicated w/ Multiple Tx Options(4),Dx New problem, Prognosis Uncertain (4)???3.?Hammer toe of right foot - M20.41???4.?Osteoarthritis of right ankle and foot - M19.071??? Plan: * Treatment: * Procedure Codes:?97191 X-RAY EXAM OF RIGHT FOOT 3V, Modifiers: 26 , RT * Preventive Medicine:? ??Counseling:?Discussion:?-14: Office or other outpatient visit for the evaluation and management of an established patient, which required a medically appropriate history and/or examination and MODERATE level of DECISION MAKING for: 1 OR MORE CHRONIC PROBLEM(S) THATS WORSENING, 2 STABLE CHRONIC PROBLEMS, A NEWLY DIAGNOSED PROBLEM WITH UNCERTAIN PROGNOSIS, AN ACUTE COMPLICATED INJURY WITH MULTIPLE TREATMENT OPTIONS, OR AN ACUTE PROBLEM WITH ACCOMPANYING SYSTEMIC SYMPTOMS, THAT POSE(S) A MODERATE RISK OF MORBIDITY. THIS CONDITION MAY ALSO INCLUDE RX DRUG MANAGEMENT, OR A DECISON FOR MINOR SURGERY. The visit on the day of the encounter encompassed interpreting the data and educating the patient as to the nature of their condition, treatment options available according to their individual PMH, meds, allergies, and overall health/living conditions, as well as any potential risks or complications that may occur from a failure to adhere to, and participate in, the recommended course of therapy. The discussion included a complete verbal, and/or written explanation of the examination results, any x-rays taken, the proposed diagnosis, and outline of the treatment plan. A schedule for future care needs was also explained. The patient verbalized an understanding of the instructions at this time and agreed to be an active participant in their treatment. If the patient should think of any questions or concerns after the visit, I have encouraged the patient to call the office.?Arthritis:?The patient was counseled on the various etiologies for their Arthritis including genetic, history of injury or trauma, abnormal foot biomechanics leading to excessive joint wear, and use/overuse. We discussed the various treatment options from no treatment, to topical analgesics such as Biofreeze gel, Aspercream, Voltaren gel, Lidoderm patches, CBD oils, THC creams, and Custom-compounded topical cream preparations to natural oral products such as Glucosamine Sulfate/Chondroitin/MSM/Collegen to analgesic Tylenol, to anti-inflammatory medications such as Ibuprofen/Naproxen, and the use of oral steroids if needed. Cardiac, Kidney, and GI issues were discussed RE: potential complications of oral anti-inflammatories. We discussed several other treatment options consisting of accom shoes, supportive innersoles, AFO bracing/support, cortisone injection therapy, and surgical resection of the arthritic joint(s) or fusion reconstruction if necessary. We discussed the advantages and disadvantages of conservative (vs) surgical treamtents including pain relief, improved function/activities of daily life, return to exercise to failure, expense, systemic complications, infection, [id number], prolongued postop course. Patient questions re: the various treatment options available, their successes and potential failures, and snf effects were discussed and the answers were verbally confirmed understood.?Neuritis/Neuropathy:?The patient was counseled on the diagnosis, possible etiologies (including mechanical stress, injury, entrapment, chemotherapy, diabetes, vertebral disk herniation if hx), treatment options, and importance for adherence to recommendations in order to address the patients Neuritis/Neuropathy. The advantages and disadvantages re: Accomidative mechanical support/offloading, Topical vs PO analgesics including aspercream/Voltaren gel/Lidoderm patches/Neurontin/Lyrica along with their potential side effects were discussed with the patient to their satisfaction. Also discussed the use of therapeutic injectable cortisone if needed. Surgical treatment, if considered an option, was discussed as well. If surgery is warranted, we discussed the potential successful outcomes as well as the possible complications such as failure, painful scar, permanent tingling/numbness/neuralgea/or intractable pain. Patient questions re: medication use, dosage, and possible side effects and drug interactions were reviewed and the answers to each understood. If the condition worsens, the patient was instructed to contact the office for an appointment. The patient verbally confirmed a full understanding of the above, Recommended Topical analgesics including aspercream/Voltaren gel/Lidoderm patches.? * Follow Up:?prn * Images: * Sign off status: Completed true * Provider:?Gill Toscano DPM Date:?2024 Generated for Naomi ruvalcaba/Fabiola/Luis Carlos on:?06/05/2024 02:40 PM EST History and Physical Notes * HPI (History of Present Illness) Category Sub-Category Detail Notes Category Not es Foot Pain Nature: , numbness Location: , RIGHT great toe Duration: , several years Onset: unknown Course: worse Aggravated: any pressure, especi ally barefoot Treatments: rest/alter normal da jessie activity Misc: Pt relates absence o f lower spinal issues of bulging/slipped disk, stenosis, arthritis, or surgery Examination Category Sub-Category Detail Notes Category Not es Neuroma Pain PALPATION: No interspace pain noted on palpation Neurological SENSORY: Neurological exa m reveals intact sensorium, pain sensation normal, vibration sensation intact, pinprick sensation is normal in the lower extremities, , Pt relates, numbness right great toe TINEL'S COMPRESSION: Negative tarsal ger maida, carli pedis, and medial calcaneal nerves, Saphenous nerve distribution Dermatologic ULCER: Orthopedic GAIT ABNORMALITY: Pronated, abducted angl e and base of gate DIGITAL DEFORMITIES: Digital contracture , PIPJ, 2-5 B/L, incompl-reducible with WB, or to push-up test, no over, nor underlapping MUSCLE STRENGTH: 5/5 all groups in a symmetrical fashion, B/L General Examination GENERAL APPEARANCE: Reveals a pleasant, alert, well nourished, well developed, well hydrated individual, who demonstrates proper attention to hygene/body habitus, and is in no acute distress ORIENTED: person, place, and t jordan Vascular DP PULSES (B): 2/4, B/L PT PULSES (B): 2/4, B/L CAPILLARY FILL TIME: immediate, all digi ts, B/L TEMPERTURE GRADIENT (C): normal, warm to cool, proximal to distal, B/L, B/L TROPHIC CONDITION-TEXTURE/ELASTICITY/TURGOR/HAIR GROWTH (B): normal, B/L PIGMENTATION: normal, B/L Nails NAILS are: X-Rays - IMAGING REPORT Findings: normal b one and soft tissue density consistent for patients age and sex , dorsal degenerative changes of the tarsal joints, positive infra-calcaneal exostosis, positive retro-calcaneal exostosis Fracture: Negative fractures i dentified Digits: show asymmetrical gerard int space narrowing at the PIPJ consistent with clinical finding of hammertoe deformity, show enlarged/hypertrophied phalangeal head(s) consistent for clinical finding of hammertoe deformity HAV: there is asymmetrica l narrowing of the 1st MPJ joint space, there is squaring of the 1st MTH, increased Hallux Interphalangeus angle with asymmetrical IPJ and joint degeneration Views: 3 views of Foot , AP , LAT , LO , RIGHT Taken by trained Podiatric Shortage Worker ( __ ) Clinical Indication(s): Evaluate Biomech anical Deformity , Evaluate for Fracture
--- OUTSIDE RECORDS SUMMARY | 2024-06-05 14:42 | XMS_ITS | Clinical Summary ---
Author Organization [facility] Address [phone] [facility] [employer] [place] [address] Care Team Providers Care Gut Dropper Name Role Phone Pcp, Unknown Primary Care Provider Unavailabl e Social History Tobacco Use Types Packs/Day Years Used Date Smoking Tobacco: Never Assessed Education Answer Date Recorded Are you interested in more education? Not on laura e 08/18/2022 Are you concerned about learning? Not on file 08/18/2022 No 08/18/2022 No 08/18/2022 Digital Access Answer Date Recorded No 09/16/2022 No 09/16/2022 No 09/16/2022 Reliable internet access at home? Not on file 09/16/2022 Device with a working camera? Not on file Sex and Gender Information Value Date Recorded Sex Assigned at Not on file Gender Identity Not on file Sexual Orientation Not on file Plan of Treatment Health Maintenance Due Date Last Done Comments Adult Td,Tdap Booster 1960 LIPID PANEL 1960 DEPRESSION SCREENING 1974 SMOKING Hx and SMOKELESS TOB ACCO SCREENING 11/22/1975 HEPATITIS B SCREENING 1980 HEPATITIS C SCREENING 1980 HIV ONE-TIME SCREENING (18-6 5 YEARS) 1980 COLOGUARD 11/22/2007 COLONOSCOPY 11/22/2007 COLORECTAL CANCER SCREENING 11/22/2007 FIT TEST 11/22/2007 FOBT 11/22/2007 SIGMOIDOSCOPY 11/22/2007 VIRTUAL COLONOSCOPY 11/22/2007 PNEUMOCOCCAL VACCINES (50+ y ears) (1 of 1 - PCV) 2012 ZOSTER VACCINES (1 of 2) 2012 INFLUENZA VACCINE (#1) 2023 COVID-19 VACCINE ( - 2023-2 5 season) 2023 RSV VACCINE (1 - 1-dose 75+ series) 2037 HEPATITIS A VACCINES Aged Out No long er eligible based on patient's age to complete this topic HEPATITIS B VACCINES Aged Out No long er eligible based on patient's age to complete this topic HIB VACCINES Aged Out No longer eligi ble based on patient's age to complete this topic MENINGOCOCCAL VACCINES (ACWY) Aged Out No longer eligible based on patient's age to complete this topic Medical Devices Not on file Care Teams Gut Dropper Relationship Specialty Start Date End Date Pcp, Unknown PCP - General 05/04/21 Additional Source Comments The information contained in this document represents components of the legal health record. It is not the complete legal health record.[facility]
--- OUTSIDE RECORDS SUMMARY | 2024-06-05 14:42 | XMS_ITS | Patient Health Record ---
Author Organization [facility] eknneth [place] Address [address] [facility] [place] [address] Care Team Providers Care Data Engineer Name Role Phone Eduardo Urena Primary Care Provider Unav ailable Black, Gill Unavailable [phone] Allergies No Known Allergies Results Component Value Reference Range Notes X ray : Foot, right 3V Reviewed date:06/03/2024 04:22:54 PM Interpretation:See Examination above Performing Lab: Notes/Report: See Examination above Reason For Referral No Information Medications Medication SIG (Take, Route, Frequency, Duration) [...] Problem Status W/U Status Risk Notes Problem Ulcer of toe (040304548) Non-pressure chronic ulcer of other part of right foot limited to breakdown of skin (L97.511) Active confirmed Problem Acquired hammer toe of right foot (2857800736425677 ) Other hammer toe(s) (acquired), right foot (M20.41) Active confirmed Problem 369016926 Hammer toe of right foot (M20.41) Active confirmed Problem Mononeuropathy of lower limb (334482473) Neuritis of right foot (G57.91) Active confirmed Problem Localized, primary osteoarthritis of the ankle and/or foot (198107260) 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.071) Active confirmed Vital Signs Height 5ft 10in in 06/03/2024 Weight 245 lbs 06/03/2024 BMI 35.15 kg/m2 06/03/2024 Encounters Encounter Location Date Provider Diagnosis [address] [address] 06/03/2024 Gill Black Pain in right foot M79.671 ; Neuritis of right foot G57.91 ; Hammer toe of right foot M20.41 and Osteoarthritis of right ankle and foot M19.071 [facility] [address] [place] [address] 04/30/2024 Gill Black Assessments Encounter Date Diagnosis (ICD Code) Assessment Notes Treatment Notes Treatment Clinical Notes Section Notes 06/03/2024 Pain in right foot (ICD-10 - M79.671) 06/03/2024 Neuritis of right foot (ICD-10 - G57.91) 06/03/2024 Hammer toe of right foot (ICD-10 - M20.41) 06/03/2024 Osteoarthritis of right ankle and foot (ICD-10 - M19.071) Plan Of Treatment Pending Test Test Name Order Date *Liver Function Test (LFT) 03/21/2020 07650-Uoqmkqoj Plate 03/21/2020 71861- Debride <25 sq cm 03/28/2020 Insurance Providers Payer Name Payer Address Payer Phone Subscriber Number Group Number Insured Name Patient Relationship to Insured Coverage Start Date Coverage End Date [facility] [address] [facility] [place] [address] [id number] Jimmy Jauregui Self - patient is the insured Medical (General) History Medical History History ICD Code Hypertension Surgical History Surgery Date(Month/Year) colonoscopy 06/2014
--- NOTE | 2024-06-05 14:43 | CA_ITS ---
Transthoracic Echocardiogram Patient (Last, First, Middle): Jimmy Jauregui, Gender: Male Date of : 1960 Age: 63 Procedure Date: 06/05/2024 Procedure Type: Transthoracic Echocardiogram Location: OP Height: 177.8 cm Weight: 108.86 kg BSA: 2.26 m2 Heart Rate: bpm BP: 136 / 82 mmHg Behavioral Health Specialist: TO Referring MD: Eduardo Putnam [facility] Collections Technician: Sanjay Bruner MD Symptoms: I77.810 - Thoracic aortic ectasia Study Quality: Fair ECG Rhythm: Sinus Conclusions: - 1. Normal LV ejection fraction of 60-65% with grade 1 diastolic dysfunction 2. Normal cardiac valvular Doppler 3. Mildly dilated ascending aorta at 4.2 cm 4. No gross pericardial effusion Findings Left Ventricle Normal left ventricular size, thickness, and systolic function. The visually estimated ejection fraction is between 60-65%. Spectral Doppler is indicative of an impaired relaxation filling pattern. E/E prime ratio is <8, consistent with normal filling pressures. Right Ventricle Normal right ventricular cavity size and systolic function. Atria Both atria are normal in size. There is no evidence of interatrial shunt. Aortic Valve Normal aortic valve structure and function. There is mild calcification of the aortic valve. There is no aortic valve stenosis. There is no aortic valve regurgitation. Mitral Valve Normal mitral valve structure and function. There is no mitral valve regurgitation. There is no mitral valve stenosis. Pulmonic Valve The pulmonic valve was not well visualized. Tricuspid Valve Normal tricuspid valve structure. There is trace tricuspid valve regurgitation. The right ventricular systolic pressure is normal. The right ventricular systolic pressure is 19 mmHg. Normal right atrial pressure. There is no evidence of pulmonary hypertension. Great Vessels The pulmonary artery was not well visualized. There is mild dilatation of the ascending aorta measuring 4.20 cm. Venous The inferior vena cava is normal in size and collapses greater than 50% with inspiration. Pericardium/Pleural There is no evidence of pericardial effusion. Prior Study Comparison No significant change compared to prior study dated: 06/19/2023. Measurements 2D Linear Measurements IVSd: 1.15 0.6-0.9/0.6-1.0 cm LVIDd: 5.07 3.9-5.3/4.2-5.9 cm LVIDd Index: 2.24 2.4-3.2/2.2-3.1 cm/m2 LVIDs: 3.33 2.0-3.6 cm LVPWd: 0.81 0.7-1.1 cm LA Diam: 3.10 2.7-3.8/3.0-4.0 cm LAIDs Index: 1.37 1.5-2.3 cm/m2 LV Mass: 225.79 67-162/88-224 g LV Mass Index: 99.91 43-95/49-115 g/m2 LVOT Diam: 2.40 3.0+(-)1.3 cm 2D Systolic Function EF 4C: 56.40 >55% EF 2C: 64.00 >55% EF BiP: 59.80 >55% Mitral Valve MV Pk E: 0.69 MV PK A: 0.87 MV Decel Time: 260.00 E/A: 0.80 E'Lateral: 9.79 E'Medial: 7.94 E/E' Med: 8.70 E/E' Lat: 7.10 PHT: 76.00 MVA PHT: 2.89 Decel Fisher: 2.67 Aortic Valve AoV Pk Rodney: 1.51 AoV Mn Rodney: 1.02 AoV VTI: 0.28 AoV Pk Grad: 9.00 Aov Mn Grad: 5.00 LAI Cont.VTI: 3.99 LVOT LVOT Pk Rodney: 1.16 LVOT Mn Rodney: 0.81 LVOT VTI: 0.25 LVOT Pk Grad: 5.00 LVOT Mn Grad: 3.00 LVOT Diam: 2.40 LVOT Area: 4.52 Diastolic Function MV Pk E: 0.69 MV Pk A: 0.87 E/A: 0.80 E'Medial: 7.94 E/E' Med: 8.70 E' Laterial: 9.79 E/E' Lat: 7.10 Right Ventricle TAPSE (mm): 27.00 TVS' Rodney: 16.00 Tricuspid Valve TR Pk Rodney: 2.00 TR Pk Grad: 16.00 RA Press: 3.00 RVSP: 19.00 Great Vessels Aorta Sinus of Valsalva: 4.03 2.0-3.[address] Ridge: 3.21 1.7-3.4 cm Ao Asc: 4.20 2.1-3.4 cm Ao Arch: 3.20 Updated in Other Vendor System with Status of Final Sanjay Bruner MD electronically signed on 06/06/2024 12:13:49 PM with status of Final
== END ==
LOC: HO.CARD 14:38
PROVIDERS: PCP Nurse Practitioner Family; Visit Provider Nurse Practitioner Family
DX: I77.810 Thoracic aortic ectasia (principal)
CPT/HCPCS: 93306; Q9957

== ENCOUNTER → 2024-06-05 14:43 | Outpatient (BNV) | payer OTHER, SELFPAY | PROVIDERS: PCP Nurse Practitioner Family; Visit Provider Internal Medicine Cardiovascular Disease | DX: I71.21 Aneurysm of the ascending aorta, without rupture (principal); I35.8 Other nonrheumatic aortic valve disorders | CPT/HCPCS: 93306 ==

== ENCOUNTER 2024-07-16 13:05 | Outpatient (AMB) | payer OTHER, SELFPAY ==
[2024-07-16 13:17] VITALS: BP 132/80; PULSE 78; O2SAT 97; BMI 36.2
--- NOTE | 2024-07-16 13:17 | A.OFFPC_ITS ---
Vital Signs 07/16/24 13:17 Height 5 ft 10 in Weight 252 lb BMI 36.2 BP 132/80 Blood Pressure Location Lt brachial Position Sitting Pulse 78 Pulse Source Pulse Oximeter Pulse Oximetry (%) 97 Oxygen Delivery Method Room Air Intake Visit Reasons: 6 month follow up Director Occupational Required: No Accompanied by: Self / Same As Patient Allergies No Known Allergies Allergy (Verified 07/16/24 13:18) Tobacco use date assessed: 07/16/24 Dental Screening Dental Screen Date: 07/16/24 Did you have a dental visit in the last 12 months?: Yes Did you have a dental problem in the last 6 months where you did not have access to dental care?: No Was dental information given to patient?: Patient has dentist HPI 6 month follow up HPI Details Chief Complaint The patient is presenting for a routine follow-up for hypertension management. History of Present Illness The patient is a 63-year-old male presenting for the management of essential hypertension. He reports that his hypertension is currently stable. He does not experience any related symptoms such as shortness of breath, chest pain, headache, blurred vision, or dizziness. In managing his hypertension, he is focusing on dietary modifications including improving portion sizes. The patient also has a history of obesity, and while he presents with trace edema in the bilateral extremities, he reports general well-being. Social History - The patient emphasizes the need to imp rove his diet, focusing on portion sizes and the type of food consumed. - He expresses intent to increase his ph ysical activity, specifically taking advantage of the favorable weather to engage in more outdoor activities. Health Maintenance - Counseling provided on dietary modific ations for weight management and hypertension control. - Encouraged increased physical activity with the judaism of nicer weather. Review of Systems - Cardiovascular: Denies shortness of br eath, chest pain. - Neurological: Denies headache, blurred vision, dizziness. Physical Exam General: Cooperative, healthy appearing, comfortable, no acute distress and well developed Orientation: Patient oriented x3 Limitations: No limitations Head: Normal to inspection Ears: Hearing grossly normal bilaterally Nose: Normal external nose present Face and sinus: Normal facial exam Eyes: Appearance normal, both eyes and all related structures Neck: Normal visual inspection and Yes full ROM Respiratory: Normal respiratory effort and able to speak in complete sentences. Clear to auscultation bilaterally Cardiovascular: Regular rate and rhythm. Normal S1 and S2 GI: Normal to inspection. Soft to palpation and nontender Skin: No rashes or lesions noted Neuro: Patient oriented x3 Extremities: Trace edema to bilateral extremities noted Results Plan The patient's essential hypertension is stable, with no necessity to alter the current treatment regimen. Efforts will center on dietary improvements, specifically with portion control, and an increase in physical activity, given the conducive weather. A follow-up routine physical exam is scheduled in six months to evaluate the patient's progress in blood pressure management and weight control. Discussion Notes I discussed with the patient that his essential hypertension is currently stab le, and we agreed that continuing his current management plan is appropriate. We emphasized the benefits of dietary modifications, such as portion control, and the importance of increasing physical activity due to the current good weather conditions. We also highlighted the potential positive effects on both hypertension and obesity. Plans for a follow-up exam in six months were outlined, with a focus on continued monitoring of hypertension and weight status. Patient Instructions - Continue current hypertension manageme nt regimen. - Focus on dietary modifications: contro l portion sizes and improve food choices. - Engage in regular physical activity, e specially outdoors, to enhance cardiovascular health. - Follow up for a routine physical exam in six months. - Monitor for any new symptoms and seek care if condition worsens. [facility] Medical History Ascending aorta dilatation HTN (hypertension) Subarachnoid hemorrhage Surgical History No pertinent past surgical history Social History Housing: House Patient Tobacco Use Status: Former Tobacco user e-Cigarette/Vaping Use: Never Used Second Hand Smoke Exposure: No (sister) service: No Current occupational status: employed Current occupation: FORMERLY [employer] Current occupational exposures/hazards: No Cognitive needs: No Hearing needs: No Vision needs: No Questionnaire PHQ-9 Over the last 2 weeks, how often have you been bothered by any of the following problems? 1. Little interest or pleasure in doing things: not at all 2. Feeling down, depressed, or hopeless: not at all 3. Trouble falling or staying asleep, or sleeping too much: not at all 4. Feeling tired or having little energy: not at all 5. Poor appetite or overeating: not at all 6. Feeling bad about yourself - or that you are a failure or have let yourself or your family down: not at all 7. Trouble concentrating on things, such as reading the newspaper or watching television: not at all 8. Moving or speaking so slowly that other people could have noticed. Or the opposite - being so fidgety or restless that you have been moving around a lot more than usual: not at all 9. Thoughts that you would be better off or of hurting yourself in some way: not at all Total score: 0 Depression Screening Interpretation: Negative Depression Screening Done: Yes 64236 - PHQ-9 Billing: Yes Source: Developed by Drs. Marco Strong, Krystal Cordova, Luis Ybarra and colleagues, with an educational milly from [employer]. Thrive Questionnaire Date Thrive assessed: 07/16/24 I am a: Patient What is your living situation today?: I have a steady place to live Within the past 12 months, did the food you bought not last and you didn't have the money to get more?: Never true Within the past 12 months, did you worry whether your food would run out before you got money to buy more?: Never true Do you have trouble paying for medicines?: No Do you have trouble getting transportation to medical appointments?: No Do you have trouble paying your heating and electricity bill?: No Do you have trouble taking care of your child, family member or friend?: No Do you have trouble with day-to-day activities such as bathing, preparing meals, shopping, managing finances, etc.?: No Are you currently unemployed and looking for a job?: No Are you interested in more education?: Yes Please select the resources that you would like help with: None Currently or been in a relationship where the following occur: No concerns reported THRIVE Score: 0 AUDIT C Alcohol Use Questionnaire (AUDIT-C) 1. How often do you have a drink containing alcohol?: Monthly or less 2. How many drinks containing alcohol do you have on a typical day when you are drinking?: 3 or 4 3. How often do you have six or more drinks on one occasion?: Monthly Total Score: 4 Score Reviewed/Action Taken: Yes IRENE-7 AMB Questionnaire IRENE-7 Date IRENE - 7 assessed: 07/16/24 Feeling nervous, anxious, or on edge: 0 = Not at all Not being able to stop or control worryin = Not at all Worrying too much about different things: 0 = Not at all Trouble relaxin = Not at all Being so restless that it is hard to sit still: 0 = Not at all Becoming easily annoyed or irritable: 0 = Not at all Feeling afraid as if something awful might happen: 0 = Not at all Total IRENE-7 score (0-4 normal; 5-9 mild; 10-14 moderate; 15-21 severe): 0 Source: Developed by Drs. Marco Strong, Krystal Cordova, Luis Ybarra and colleagues, with an educational milly from [employer]. IRENE-7 Assessment Billing IRENE-7 Assessment Tool: IRENE-7 Assessment 33001 Physical exam (Primary Care) Vital Signs: Last Vital Signs Pulse 78 07/16/24 13:17 BP 132/80 07/16/24 13:17 Pulse Ox 97 07/16/24 13:17 Oxygen Delivery Method Room Air 07/16/24 13:17 BMI result Body Mass Index 36.2 Tobacco/Smoking Status: Tobacco use Status Tobacco use date assessed 07/16/24 07/16/24 13:19 Patient Tobacco Use Status Former Tobacco user 07/16/24 13:19 e-Cigarette/Vaping Use Never Used 07/16/24 13:19 PHQ-9: PHQ-9 Score PHQ-9: Total score 0 07/16/24 13:19 Depression Screening Interpretation: Negative Thrive Assessment: Date of Thrive Assessment Date Thrive assessed 07/16/24 07/16/24 13:19 Currently or been in a relationship where the following occur: No concerns reported Coding Level of Care Code Est Pt Level 3 (75683) Diagnoses HTN (hypertension) I10 Additional Codes IRENE-7 Assessment Billing - IRENE-7 Assessment Tool: IRENE-7 Assessment 08212 ([id number]) PHQ-9 - 03615 - PHQ-9 Billing: Yes ([id number]) Assessment & Plan Assessment & Plan (1) HTN (hypertension): Code(s): I10 - Essential (primary) hypertension Category: Medical Plan . Orders: Orders Complete Blood Count Auto Diff Today I10 - Essential (primary) hypertension Comprehensive Raven. Panel Fast Today I10 - Essential (primary) hypertension TSH reflex Free T4 Today I10 - Essential (primary) hypertension UA CC w/rflx Micro + Cult Today I10 - Essential (primary) hypertension Lipid Panel Today I10 - Essential (primary) hypertension
--- OUTSIDE RECORDS SUMMARY | 2024-07-16 16:12 | XMS_ITS ---
Author Organization [facility] Address [address] [place] [address] Care Team Providers Care Armor Reconnaissance Vehicle Crewman Name Role Phone Eduardo Urena Primary Care Provider Unav ailable Black, Gill Unavailable [phone] REASON FOR VISIT wants appt Encounters Encounter Location Date Provider Diagnosis [facility] [address] [place] [address] 04/30/2024 Gill Black Plan Of Treatment No Information Progress Notes * Jimmy JOYA MDOB:1960 (63 yo M)Acc No.[id number]:04/30/2024 Patient:?Jimmy JOYA :1960???Age:63 Y???Sex:Male Address:[facility] [place] [address] * true * Date:? Generated for Fredoi peg/Fabiola/eTransmitting on:?07/16/2024 04:12 PM EDT
--- OUTSIDE RECORDS SUMMARY | 2024-07-16 16:12 | XMS_ITS ---
Author Organization [facility] kenneth [place] Address [address] [place] [address] Care Team Providers Care Automotive Sales Professional Name Role Phone Eduardo Urena Primary Care Provider Unav ailable Black, Gill Unavailable [phone] Allergies No Known Allergies Results Component Value [...] Risk Notes Problem Mononeuropathy of lower limb (335446723) Neuritis of right foot (G57.91) Active confirmed Problem 903493033 Hammer toe of right foot (M20.41) Active confirmed Problem Localized, primary osteoarthritis of the ankle and/or foot (326803864) 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.071) Active confirmed Vital Signs Height 5ft 10in in 06/03/2024 Weight 245 lbs 06/03/2024 BMI 35.15 kg/m2 06/03/2024 Encounters Encounter [facility] [place] [address] 06/03/2024 Gill Toscano Pain in right foot [...] * Jimmy JOYA MDOB:1960 (63 yo M)Acc No.[id number]:06/03/2024 Progress Note Patient:?Jimmy JOYA Provider:?Gill Toscano DPM :1960???Age:63 Y???Sex:Male Geo e:06/03/2024 Address[place] [id number] Pcp:CARLA Philip Subjective: * Chief Complaints: * [...] LAT , LO , RIGHT??Taken by trained?Podiatric Language Interpreter (?__ ).?Findings:?normal bone and soft tissue density [...] - M19.071??? Plan: * Treatment: * Procedure Codes:?59918 X-RAY EXAM OF RIGHT FOOT 3V, Modifiers: [...] exercise to failure, expense, systemic complications, infection, [id number], prolongued postop course. Patient questions re: the various treatment options available, their successes and potential failures, and intermodal truck driver effects were discussed and the answers were [...] DPM Date:?2024 Generated for Naomi ruvalcaba/Fabiola/Luis Carlos on:?07/16/2024 04:11 PM EDT History and Physical Notes * HPI (History [...] LO , RIGHT Taken by trained Podiatric Language Interpreter ( __ ) Clinical Indication(s): Evaluate Biomech anical Deformity , Evaluate for Fracture
--- OUTSIDE RECORDS SUMMARY | 2024-07-16 16:12 | XMS_ITS | Patient Health Record ---
Author Organization [facility] kenneth [place] Address [address] [facility] [place] [address] Care Team Providers Care Infantry Officer Name Role Phone Eduardo Urena Primary Care Provider Unav ailable Black, Gill Unavailable [phone] Allergies No Known Allergies Results Component Value [...] Status Risk Notes Problem Ulcer of toe (047223020) Non-pressure chronic ulcer of other part of right foot limited to breakdown of skin (L97.511) Active confirmed Problem Acquired hammer toe of right foot (3904945982280324 ) Other hammer toe(s) (acquired), right foot (M20.41) Active confirmed Problem 891838332 Hammer toe of right foot (M20.41) Active confirmed Problem Mononeuropathy of lower limb (326911464) Neuritis of right foot (G57.91) Active confirmed Problem Localized, primary osteoarthritis of the ankle and/or foot (885393337) 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.071) Active confirmed Vital Signs Height 5ft 10in in 06/03/2024 Weight 245 lbs 06/03/2024 BMI 35.15 kg/m2 06/03/2024 Encounters Encounter Location Date Provider Diagnosis [address] [address] 06/03/2024 Gill Black Pain in right foot M79.671 ; Neuritis of right foot G57.91 ; Hammer toe of right foot M20.41 and Osteoarthritis of right ankle and foot M19.071 [facility] [address] [place] [address] 04/30/2024 Gill Black Assessments Encounter Date Diagnosis [...] Order Date *Liver Function Test (LFT) 03/21/2020 95153-Xjfuvffz Plate 03/21/2020 65091- Debride <25 sq cm 03/28/2020 Insurance Providers Payer Name Payer Address Payer Phone Subscriber Number Group Number Insured Name Patient Relationship to Insured Coverage Start Date Coverage End Date [facility] [address] [place] [address] [id number] Jimmy Jauregui Self - patient is the insured Medical (General) History Medical History History ICD Code Hypertension Surgical History Surgery Date(Month/Year) colonoscopy 06/2014
--- OUTSIDE RECORDS SUMMARY | 2024-07-16 16:12 | XMS_ITS | Patient Health Record ---
Author Organization [facility] Address [address] [place] [address] Care Team Providers Care Flat Machine Cutter Name Role Phone RASTAKaris STEVE Primary Care Provider Marco Caceres [phone] Reason For Referral No Information Medications Medication SIG (Take, Route, Fr equency, Duration) Notes Start Date End Date Status MoviPrep 100 GM as directed Orally a s directed for 1 dose 04/28/2014 Active Lisinopril 5 MG 1 tablet Orally Once a day Active Multivitamin Orally Active Problems Problem Type SNOMED Code ICD Code Onset Dates Problem Status W/U Status Risk Notes Problem Pre-surgery evaluation (621380544) Other specified pre-operative examination (V72.83) Active confirmed Problem Colon cancer screening (108958524) Colon cancer screening (V76.51) Active confirmed Plan Of Treatment Future Test Test Name Order Date COLONOSCOPY 04/27/2014 Next Appt Details Provider Name:Marco Buchanan , 08/26/2024 03:40:00 PM, [address], [address], [place], [address], Insurance Providers Payer Name Payer Address Payer Phone Subscriber Number Group Number Insured Name Patient Relationship to Insured Coverage Start Date Coverage End Date [facility] [address] [place] [phone] [id number] RANDY JOYA Self - patient is the insured Medical (General) History Medical History History ICD Code Hypertension Denies HI,DM,CVA,Lung disease,renal dise ase
== END 2024-07-16 14:03 | disposition home or self-care (01) ==
LOC: HO.HMCC 13:06
PROVIDERS: PCP Nurse Practitioner Family; Visit Provider Nurse Practitioner Family
DX: I10 Essential (primary) hypertension (principal)

== ENCOUNTER → 2024-07-16 13:05 | Outpatient (BNVA) | payer OTHER, SELFPAY | PROVIDERS: PCP Nurse Practitioner Family; Visit Provider Nurse Practitioner Family | DX: I10 Essential (primary) hypertension (principal) | CPT/HCPCS: 96127 ==

== ENCOUNTER 2025-02-17 06:02 | Outpatient (REF) | payer OTHER, SELFPAY ==
[2025-02-17 08:53] LABS: Prostate Specific Antigen 8.02 ng/mL (<0.05-4.0)
== END 2025-02-17 06:03 | disposition home or self-care (01) ==
LOC: HO.LAB 06:02
PROVIDERS: PCP Nurse Practitioner Family; Visit Provider Urology
DX: N40.1 Benign prostatic hyperplasia with lower urinary tract symptoms (principal); N13.8 Other obstructive and reflux uropathy; Z12.5 Encounter for screening for malignant neoplasm of prostate
CPT/HCPCS: 36415; 84153

== ENCOUNTER 2025-02-23 14:07 | Outpatient (AMB) | payer OTHER, SELFPAY ==
--- OUTSIDE RECORDS SUMMARY | 2024-08-26 10:40 | XMS_ITS ---
Author Organization [facility] Address [address] [place] [address] Care Team Providers Care Dog Behaviorist Name Role Phone STEVE LEVY Primary Care Provider Marco Caceres [phone] REASON FOR VISIT Patient presents today for a screening colon Encounters Encounter Location Date Provider Diagnosis [facility] [address] [facility] [address] [place] [address] 08/26/2024 Marco Buchanan Plan Of Treatment Next Appt Details Provider Name:Marco Buchanan , 03/05/2025 01:30:00 PM, [address] [place] [address] , [place], [place], [phone], Progress Notes * TOANRANDYDOB:1960 ( 64 yo M)Acc No.[id number]:08/26/2024 Progress Notes Patient: RANDY DUMONT Provider: Maury Buchanan MD :1960 A ge:63 Y S ex:Male Date:08/26/2024 Address:[address] [place] [id number] Pcp:STEVE LEVY Subjective: * Chief Complaints: * 1 . Patient presents today for a screening colon. * Medical History: Objective: * Vitals: Assessment: Plan: * Treatment: * * The named appointment provid er may or may not be the originator of this progress note, and it is not deemed complete until electronically signed by the appointment provider. Sign off status: Pending * Provider: Maury Buchanan MD Date: 0 08/26/2024 Generated for Naomi ruvalcaba/Fabiola/Luis Carlos on: 04/25/2024 05:10 PM EST
--- NOTE | 2025-02-23 14:20 | A.OFFVIS_ITS ---
Intake Visit Reasons: 1y/ PSA Intake Note: Patient is present for 1 yr follow up Urology Med: Finasteride Antibiotic Allergy: None Blood Thinner: None PVR:97 mls PSA: 02/17/25 PSA: 8.02 Physical Therapy Assistant Required: No Accompanied by: Self / Same As Patient Allergies No Known Allergies Allergy (Verified 02/23/25 14:25) HPI Comments Details: Jimmy is a pleasant male. He is a patient of Dr. Barreto. He seen for the following urologic issue - elevated PSA Yearly follow-up Significant rise in PSA He had stopped finasteride completely Restarted PSA after seeing PSA number Three-month follow-up repeat labs SHARI 2+ no nodules Elevated PSA Presentation initially with elevated PSA and mild LUTS symptoms Current therapy finasteride Laboratories - 11/08 2.7, 12/10 4.3, 07/11 4.5 F 9%, 02/10 1.3, 08/12 0.96, 02/11 1.0, 02/12 3.1, 02/13 8.0 Prostate biopsy 08[facility] Medical History (Updated 09/10/24 @ 08:05 by ROXANNA Mera-REYNALDO) Pes cavus Ascending aorta dilatation HTN (hypertension) Subarachnoid hemorrhage Surgical History No pertinent past surgical history Social History Housing: House Patient Tobacco Use Status: Former Tobacco user e-Cigarette/Vaping Use: Never Used Second Hand Smoke Exposure: No (sister) service: No Current occupational status: employed Current occupation: [employer] Current occupational exposures/hazards: No Cognitive needs: No Hearing needs: No Vision needs: No Review of Systems Const Denies chills and Denies fever(s) Card Reports no additional complaints and Denies syncope Resp Denies cough GI Denies abdominal pain and Denies heartburn Reports as per HPI and Denies change in libido Neuro Denies syncope Psych Denies change in libido Endo Denies change in libido Physical Exam Const General: cooperative, healthy appearing, comfortable and no acute distress Orientation/consciousness: patient oriented x3 HEENT Face and sinus: Yes normal facial exam Mouth: moist mucous membranes Neck Neck: Yes normal visual inspection, Yes full ROM and Yes trachea midline Chest Chest palpation & inspection: normal inspection of the chest Resp Effort & Inspection: normal respiratory effort, able to speak in complete sentences and no respiratory distress GI Inspection: Yes normal to inspection Rectal Exam - Male: Yes normal sphincter tone and Yes prostate normal Male General Exam: Yes normal external exam Penis: normal penis and circumcised Meatus: meatus normal Scrotum: scrotum normal Testes: Testes normal Back/Spine/Pelvis Cervical Spine: normal cervical lordosis Thoracic/Lumbar Spine: thoracic and lumbar spine normal to inspection Skin General skin exam: no rashes or lesions noted Neuro General: patient oriented x3, gait normal, tone normal and moves all extremities Extrem General: Yes normal to inspection and Yes capillary refill normal Office Procedures Post Void Residual Post Residual Void Post Void Residual (PVR): 97 27086-Rjou Void Residual by ultrasound Results AMB Urinalysis, Automated UA Leukoctes 0 Kayleigh/uL Last Edit by Donna Nash [facility] on 02/23/25 14:29 UA Nitrite Negative Last Edit by Donna Nash [facility] on 02/23/25 14:29 UA Urobilinogen 0.2 mg/dL Last Edit by Donna Nash [facility] on 02/23/25 14:29 UA Protein 15 mg/dL Last Edit by Donna Nash [facility] on 02/23/25 14:29 UA pH 6.5 Last Edit by Donna Nash [facility] on 02/23/25 14:29 UA Blood 0 Neel/uL Last Edit by Donna Nash [facility] on 02/23/25 14:29 UA Specific [place] 1.015 Last Edit by Donna Nash [facility] on 02/23/25 14:2 9 UA Ketone Negative Last Edit by Donna Nash [facility] on 02/23/25 14:29 UA Bilirubin 0 mg/dL Last Edit by Donna Nash [facility] on 02/23/25 14:29 UA Glucose 0 mg/dL Last Edit by Donna Nash [facility] on 02/23/25 14:29 Results Reviewed Results Reviewed: Laboratory Last Values Urine pH (Auto) 6.5 02/23/25 14:29 Specific [place] (Auto) 1.015 02/23/25 14:29 Urine Protein (Auto) 15 mg/dL 02/23/25 14:29 Glucose (UA)(Auto) 0 mg/dL 02/23/25 14:29 Urine Ketones (Auto) Negative 02/23/25 14:29 Urine Blood (Auto) 0 Neel/uL 02/23/25 14:29 Urine Nitrite (Auto) Negative 02/23/25 14:29 Urine Bilirubin (Auto) 0 mg/dL 02/23/25 14:29 Urine Urobilinogen (Auto) 0.2 mg/dL 02/23/25 14:29 Leukocyte Esterase (Auto) 0 Kayleigh/uL 02/23/25 14:29 Assessment & Plan Assessment & Plan (1) BPH w urinary obs/LUTS: Code(s): N40.1 - Benign prostatic hyperplasia with lower urinary tract symptoms; N13.8 - Other obstructive and reflux uropathy Category: Medical (2) Elevated PSA: Code(s): R97.20 - Elevated prostate specific antigen [PSA] Category: Medical Plan Three-month follow-up repeat PSA Restart finasteride Orders: Orders PSA,Total (Free>4and<10) 3 Months R97.20 - Elevated prostate specific antigen [PSA] Patient Instructions: This note is constructed using voice recognition software. While every effort has been made to ensure accuracy chicken vaccinator errors may have been included. Imaging studies, laboratory and physical exam results were discussed and reviewed in detail. No major barriers to patient understanding were identified. An opportunity to ask questions regarding the treatment plan was provided. All questions were answered. The patient expressed understanding and agreement with the above treatment plan. The patient is aware they should contact our office by phone for worsening of their current condition or the appearance of new urologic symptoms. Compliance is encouraged with any medications and followup testing that is ordered. It is a privilege to participate in the urologic care of your patient. If you have any questions or concerns regarding treatment for the above conditions, or other urologic issues, please do not hesitate to contact me. The office telephone contact is [phone]. Sincerely, Dr Raul Alcantara MD, DO [facility] - Urology Compassionate Specialist Care for the Genitourinary System Coding Level of Care Code Est Pt Level 4 (23862) Diagnoses BPH w urinary obs/LUTS N40.1; N13.8 Elevated PSA R97.20 CPT Codes Post Residual Void - PVR CPT Code: 48440-Xpvp Void Residual by ultrasound ([id number])
--- OUTSIDE RECORDS SUMMARY | 2025-02-23 17:10 | XMS_ITS | Clinical Summary ---
Author Organization [facility] Address [address] [place] [address] Phone Care Team Providers Care Limnologist Name Role Phone Pcp, Unknown Primary Care [...] topic Medical Devices Not on file Insurance [facility] MEALNI [place] [address] [employer] [place] [address] [place] [address] [facility] Care Teams Limnologist Relationship Specialty Start Date End Date Pcp, Unknown PCP - General 05/04/21 Additional Source Comments The information contained in this document represents components of the legal health record. It is not the complete legal health record.[facility]
--- OUTSIDE RECORDS SUMMARY | 2025-02-23 17:10 | XMS_ITS | Patient Health Record ---
Author Organization [facility] [place] Address [address] [facility] [place] [address] Care Team Providers Care Terrazzo Polisher Helper Name Role Phone Eduardo Urena Primary Care Provider Unav ailable Black, Gill Unavailable [phone] Allergies No Known Allergies Results Component Value [...] Problem Acquired hammer toe of right foot (5320421887640684 ) Other hammer toe(s) (acquired), right foot (M20.41) Active confirmed Problem Acquired hammer toe of right foot (6670520026616818 ) Hammer toe of right foot (M20.41) Active confirmed Problem Mononeuropathy of lower limb (212874786) Neuritis of right foot (G57.91) Active confirmed Problem Localized, primary osteoarthritis of the ankle and/or foot (002148551) 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.071) Active confirmed Vital Signs Height 5ft 10in in 06/03/2024 Weight 245 lbs 06/03/2024 BMI 35.15 kg/m2 06/03/2024 Encounters Encounter [facility] [address] [facility] Gill Black Pain in right foot M79.671 ; Neuritis of right foot G57.91 ; Hammer toe of right foot M20.41 and Osteoarthritis of right ankle and foot M19.071 [facility] [place] [address] [place] [address] 04/30/2024 Gill Black Assessments Encounter Date Diagnosis [...] Order Date *Liver Function Test (LFT) 03/21/2020 98420-Zyjklban Plate 03/21/2020 45865- Debride <25 sq cm 03/28/2020 Insurance Providers Payer Name Payer Address Payer Phone Subscriber Number Group Number Insured Name Patient Relationship to Insured Coverage Start Date Coverage End Date [facility] [place] [id number] Jimmy Jauregui Self - patient is the insured Medical (General) History Medical History History ICD Code Hypertension Surgical History Surgery Date(Month/Year) colonoscopy 06/2014
--- OUTSIDE RECORDS SUMMARY | 2025-02-23 17:10 | XMS_ITS | Patient Health Record ---
Author Organization [facility] Address [address] [place] [address] Care Team Providers Care Field Marketing Associate Name Role Phone STEVE LEVY Primary Care Provider Marco Caceres [phone] Allergies No Known Allergies Reason For Referral [...] W/U Status Risk Notes Problem Pre-surgery evaluation (495501927) Other specified pre-operative examination (V72.83) Active confirmed Problem Colon cancer screening (479514229) Colon cancer screening (V76.51) Active confirmed Problem Colon cancer screening (165489913) Colon cancer screening (Z12.11) Active confirmed Problem Preprocedural examination (842281995660453) Preprocedural examination (Z01.818) Active confirmed Vital Signs Temperature 98.6 degrees Fahrenheit 12/23/2024 Blood pressure diastolic 01 mm Hg 12/23/2024 Height 70 in 12/23/2024 Blood pressure systolic 001 mm Hg 12/23/2024 Weight 253 lbs 12/23/2024 BMI 36.3 kg/m2 12/23/2024 Procedures Procedure Date Ordered Date Performed Result Body Sit e COLONOSCOPY 12/23/2024 N/A Encounters Encounter Location Date Provider Diagnosis [facility] [address] [place] [address] 12/23/2024 Marco Buchanan Colon cancer screeni ng Z12.11 and Preprocedural examination Z01.818 [facility] [address] [facility] [address] [place] [address] 08/26/2024 Marco Buchanan Assessments Encounter Date Diagnosis [...] Name:Marco Buchanan , 03/05/2025 01:30:00 PM, [address] [facility] , [place], [place], [phone], Insurance Providers Payer Name Payer Address Payer Phone Subscriber Number Group Number Insured Name Patient Relationship to Insured Coverage Start Date Coverage End Date [facility] [address] [place] [phone] [id number] RANDY JOYA Self - patient is the insured Medical (General) History Medical History History ICD Code Hypertension Denies RI,DM,CVA,Lung disease,renal dise ase Cerebral aneurysm with a sub arachnoid hemorrhage---had IR for treatment of that via catheterization Screening colonoscopy was vikram baldwin in June 2014 other than a hyperplastic polyp
== END 2025-02-23 14:47 | disposition home or self-care (01) ==
LOC: HO.HUSH 14:08
PROVIDERS: PCP Nurse Practitioner Family; Visit Provider Urology
DX: N40.1 Benign prostatic hyperplasia with lower urinary tract symptoms (principal); N13.8 Other obstructive and reflux uropathy; R97.20 Elevated prostate specific antigen [PSA]
CPT/HCPCS: 99214

== ENCOUNTER → 2025-02-23 14:07 | Outpatient (BNVA) | payer OTHER, SELFPAY | PROVIDERS: PCP Nurse Practitioner Family; Visit Provider Urology | DX: N40.1 Benign prostatic hyperplasia with lower urinary tract symptoms (principal); N13.8 Other obstructive and reflux uropathy; R97.20 Elevated prostate specific antigen [PSA] | CPT/HCPCS: 51798 ==

== ENCOUNTER 2025-03-05 10:08 | Day surgery (SDC) | payer OTHER, SELFPAY ==
--- OUTSIDE RECORDS SUMMARY | 2024-08-26 11:40 | XMS_ITS ---
Author Organization [facility] Address [address] [place] [address] Care Team Providers Care Custom Tailor Apprentice Name Role Phone STEVE LEVY Primary Care Provider Marco Caceres [phone] REASON FOR VISIT Patient presents today for a screening colon Encounters Encounter Location Date Provider Diagnosis [facility] 10 [facility] [address] [place] [address] 08/26/2024 Marco Buchanan Plan Of Treatment Next Appt Details Provider Name:Marco Buchanan , 03/05/2025 01:30:00 PM, [address] [place] [address] , [place], [place], [phone], Progress Notes * TOANRANDYDOB:1960 ( 64 yo M)Acc No.[id number]:08/26/2024 Progress Notes Patient: RANDY DUMONT Provider: Maury Buchanan MD :1960 A ge:63 Y S ex:Male Date:08/26/2024 Address:[address] [place] [id number] Pcp:STEVE LEVY Subjective: * Chief Complaints: * [...] 08/26/2024 Generated for Naomi ruvalcaba/Fabiola/Luis Carlos on: 1 04:29 PM EDT
--- OUTSIDE RECORDS SUMMARY | 2025-02-09 16:29 | XMS_ITS | Patient Health Record ---
Author Organization [facility] Address [address] [place] [address] Care Team Providers Care Seed Mill Superintendent Name Role Phone STEVE LEVY Primary Care Provider Marco Caceres [phone] Allergies No Known Allergies Reason For Referral No Information Medications Medication SIG (Take, Route, Fr equency, Duration) Notes Start Date End Date Status Multivitamin Orally Active Lisinopril 5 MG 1 tablet Orally Once a day Active Immunizations Vaccine Route Administration Date Status Comme nts Influenza Unknown 12/23/2024 Refused Problems Problem Type SNOMED Code ICD Code Onset Dates Problem Status W/U Status Risk Notes Problem Pre-surgery evaluation (677141372) Other specified pre-operative examination (V72.83) Active confirmed Problem Colon cancer screening (532056855) Colon cancer screening (V76.51) Active confirmed Problem Colon cancer screening (373880656) Colon cancer screening (Z12.11) Active confirmed Problem Preprocedural examination (072469607588075) Preprocedural examination (Z01.818) Active confirmed Vital Signs Temperature 98.6 degrees Fahrenheit 12/23/2024 Blood pressure diastolic 01 mm Hg 12/23/2024 Height 70 in 12/23/2024 Blood pressure systolic 001 mm Hg 12/23/2024 Weight 253 lbs 12/23/2024 BMI 36.3 kg/m2 12/23/2024 Procedures Procedure Date Ordered Date Performed Result Body Sit e COLONOSCOPY 12/23/2024 N/A Encounters Encounter Location Date Provider Diagnosis [facility] [address] [place] [address] 12/23/2024 Marco Buchanan Colon cancer screeni ng Z12.11 and Preprocedural examination Z01.818 [facility] [address] [facility] [address] [place] [address] 08/26/2024 Marco Buchanan Assessments Encounter Date Diagnosis (ICD Code) Assessment Notes Treatment Notes Treatment Clinical Notes Section Notes 12/23/2024 Colon cancer screening (ICD-10 - Z12.11) Overall, Randy appears quite well. Given his age, good clinical appearance, and negative colonoscopy over 10 years ago, I did recommend a follow-up colonoscopy for further screening purposes. We did review the rationale for this in regard to colon cancer prevention. Full consent has been obtained for this, including risks of bleeding and perforation. The procedure will be done with monitored anesthesia care. Randy was comfortable with this plan. Thank you again for allowing me to participate in Randy's care. I shall continue to keep you advised of his progress. 12/23/2024 Preprocedural examination (ICD-10 - Z01.818) Overall, Randy appears quite well. Given his age, good clinical appearance, and negative colonoscopy over 10 years ago, I did recommend a follow-up colonoscopy for further screening purposes. We did review the rationale for this in regard to colon cancer prevention. Full consent has been obtained for this, including risks of bleeding and perforation. The procedure will be done with monitored anesthesia care. Randy was comfortable with this plan. Thank you again for allowing me to participate in Randy's care. I shall continue to keep you advised of his progress. Plan Of Treatment Pending Test Test Name Order Date COLONOSCOPY 12/23/2024 Future Test Test Name Order Date COLONOSCOPY 04/27/2014 Next Appt Details Provider Name:Marco Buchanan , 03/05/2025 01:30:00 PM, [address] [facility] , [place], [place], [phone], Insurance Providers Payer Name Payer Address Payer Phone Subscriber Number Group Number Insured Name Patient Relationship to Insured Coverage Start Date Coverage End Date [facility] [address] [place] [address] [phone] [id number] RANDY JOYA Self - patient is the insured Medical (General) History Medical History History ICD Code Hypertension Denies MT,DM,CVA,Lung disease,renal dise ase Cerebral aneurysm with a sub arachnoid hemorrhage---had IR for treatment of that via catheterization Screening colonoscopy was vikram baldwin in June 2014 other than a hyperplastic polyp
--- OUTSIDE RECORDS SUMMARY | 2025-02-09 16:30 | XMS_ITS | Clinical Summary ---
Author Organization [facility] Address [address] [place] [address] Phone Care Team Providers Care Lock Expert Name Role Phone Pcp, Unknown Primary Care [...] Recorded Sex Assigned at Not on file Legal Sex Male 8:37 AM EST Gender Identity Not on file Sexual Orientation Not on file Plan of Treatment Health Maintenance Due Date Last Done Comments Adult Td,Tdap Booster 1960 LIPID PANEL 1960 DEPRESSION SCREENING 1974 SMOKING Hx and SMOKELESS TOB ACCO SCREENING 11/22/1975 HEPATITIS C SCREENING 1980 HIV ONE-TIME SCREENING (18-6 5 YEARS) 1980 COLOGUARD 11/22/2007 COLONOSCOPY 11/22/2007 COLORECTAL CANCER SCREENING 11/22/2007 FIT TEST 11/22/2007 FOBT 11/22/2007 SIGMOIDOSCOPY 11/22/2007 VIRTUAL COLONOSCOPY 11/22/2007 PNEUMOCOCCAL VACCINES (50+ y ears) (1 of 1 - PCV) 2012 ZOSTER VACCINES (1 of 2) 2012 INFLUENZA VACCINE (#1) 2024 COVID-19 VACCINE ( - 2024-2 6 season) 2024 RSV VACCINE (1 - 1-dose 75+ series) 2037 HEPATITIS A VACCINES Aged Out No long er eligible based on patient's age to complete this topic HIB VACCINES Aged Out No longer eligi ble based on patient's age to complete this topic MENINGOCOCCAL VACCINES (ACWY) Aged Out No longer eligible based on patient's age to complete this topic MENINGOCOCCAL VACCINES (B) Aged Out N o longer eligible based on patient's age to complete this topic Medical Devices Not on file Insurance [facility] MELANI DAVALOSFORMERLY [facility] [place] [address] [address] [employer] [place] [address] [place] [address] [facility] Care Teams Lock Expert Relationship Specialty Start Date End Date Pcp, Unknown PCP - General 05/04/21 Additional Source Comments The information contained in this document represents components of the legal health record. It is not the complete legal health record.[facility]
--- OUTSIDE RECORDS SUMMARY | 2025-02-09 16:31 | XMS_ITS | Patient Health Record ---
Author Organization [facility] [place] Address [address] [facility] [place] [address] Care Team Providers Care Activities Volunteer Name Role Phone Eduardo Urena Primary Care Provider Unav ailable Black, Gill Unavailable [phone] Allergies No Known Allergies Results Component Value Reference Range Notes X ray : Foot, right 3V Reviewed date:06/03/2024 04:22:54 PM Interpretation:See Examination above Performing Lab: Notes/Report: See Examination above Reason For Referral No Information Medications Medication SIG (Take, Route, Frequency, Duration) Notes Start Date End Date Status Lisinopril 5 MG 1 tablet Orally Once a day; Duration: 30 day(s) Active Terbinafine HCl 250 MG 1 TABLET ONCE A D AY FOR 7 DAYS STOP FOR 3 WEEKS REPEAT CYCLE ORALLY 90 DAYS; Duration: 90 days Not-Taki ng Finasteride Active Multi For Him - as [...] Problem Status W/U Status Risk Notes Problem Non-pressure chronic ulcer of other part of right foot limited to breakdown of skin (L97.511) Active confirmed Problem Acquired hammer toe of right foot (9275059066994531 ) Other hammer toe(s) (acquired), right foot (M20.41) Active confirmed Problem Acquired hammer toe of right foot (5186578251591141 ) Hammer toe of right foot (M20.41) Active confirmed Problem Mononeuropathy of lower limb (504018109) Neuritis of right foot (G57.91) Active confirmed Problem Localized, primary osteoarthritis of the ankle and/or foot (775427567) 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.071) Active confirmed Vital Signs Height 5ft 10in in 06/03/2024 Weight 245 lbs 06/03/2024 BMI 35.15 kg/m2 06/03/2024 Encounters Encounter [facility] Date [facility] [address] [facility]/03/2024 Gill Black Pain in right foot M79.671 ; Neuritis of right foot G57.91 ; Hammer toe of right foot M20.41 and Osteoarthritis of right ankle and foot M19.071 [facility] [place] [address] [place] [address] 04/30/2024 Gill Black Assessments Encounter Date Diagnosis [...] Order Date *Liver Function Test (LFT) 03/21/2020 62070-Agzprnit Plate 03/21/2020 17212- Debride <25 sq cm 03/28/2020 Insurance Providers Payer Name Payer Address Payer Phone Subscriber Number Group Number Insured Name Patient Relationship to Insured Coverage Start Date Coverage End Date [facility] [place] [id number] [phone] [id number] Jimmy Jauregui Self - patient is the insured Medical (General) History Medical History History ICD Code Hypertension Surgical History Surgery Date(Month/Year) colonoscopy 06/2014
--- NOTE | 2025-03-02 14:15 | P.CONAN_ITS ---
Documented by User: Juana Gray NP 03/02/25 14:16 HPI - Anesthesia Eval Consult details Narrative: 64 yr old male for colonoscopy Aortic dilatation: echo updated 05/2024 *see below [facility] Active Problems Active Problems: All Active Problems Calcaneal spur of right foot (Acute) Paresthesia of right foot (Acute) Arthralgia of toe of right foot (Acute) Corneal abrasion, right (Acute) Ascending aorta dilatation (Acute) Systolic murmur (Acute) BPH w urinary obs/LUTS (Acute) HTN (hypertension) (Acute) Elevated PSA (Acute) Testicular cyst (Acute) Screening PSA (prostate specific antigen) (Acute) Physical exam (Acute) Microscopic hematuria (Acute) Toenail avulsion (Acute) Past Medical History Medical History Pes cavus Ascending aorta dilatation HTN (hypertension) Subarachnoid hemorrhage Surgical History Surgical History H/O colonoscopy Hx of prostate biopsy Social History Social History Housing: House Patient Tobacco Use Status: Former Tobacco user e-Cigarette/Vaping Use: Never Used Second Hand Smoke Exposure: No (sister) Advance Directives: No Advance Directives Information Provided: Yes service: No Current occupational status: employed Current occupation: [employer] Current occupational exposures/hazards: No Cognitive needs: No Hearing needs: No Vision needs: No Meds Allergies Allergy/AdvReac Type Severity Reaction Status Date / Time No Known Allergies Allergy Verified 02/23/25 14:25 Exam Narrative Narrative: ECHO Procedure Date: 06/05/2024 Procedure Type: Transthoracic Echocardiogram Location: OP Height: 177.8 cm Weight: 108.86 kg BSA: 2.26 m2 Heart Rate: bpm BP: 136 / 82 mmHg Test Borer: TO Referring MD: Eduardo Putnam [facility] Director Insurance: Sanjay Bruner MD Symptoms: I77.810 - Thoracic aortic ectasia Study Quality: Fair ECG Rhythm: Sinus Conclusions: - 1. Normal LV ejection fraction of 60-65% with grade 1 diastolic dysfunction 2. Normal cardiac valvular Doppler 3. Mildly dilated ascending aorta at 4.2 cm 4. No gross pericardial effusion Documented by User: Gloira Fish MD 03/05/25 12:59 PMFSH Past Medical History Medical History Pes cavus Ascending aorta dilatation HTN (hypertension) Subarachnoid hemorrhage Surgical History Surgical History H/O colonoscopy Hx of prostate biopsy History of Problems with Anesthesia: No Social History Social History Housing: House Patient Tobacco Use Status: Former Tobacco user e-Cigarette/Vaping Use: Never Used Second Hand Smoke Exposure: No (sister) Advance Directives: No Advance Directives Information Provided: Yes service: No Current occupational status: employed Current occupation: [employer] Current occupational exposures/hazards: No Cognitive needs: No Hearing needs: No Vision needs: No Meds Allergies Allergy/AdvReac Type Severity Reaction Status Date / Time No Known Allergies Allergy Verified 02/23/25 14:25 Exam Airway Mallampati Class: III TM Dist: >3cm Neck ROM: Full Loose/Missing/Broken Teeth: No Heart: RRR Lungs: CTA Assessment and Plan Assessment Anesthesia Assessment: Anesthesia Plan Discussed and Chart Reviewed Final Anesthetic Review History of Problems with Anesthesia: No NPO: Yes ASA Class: III Final Preanesthetic Review: Meds/Allgs Chart Reviewed, Consent Obtained/Reviewed and Anes Risks/Benef Reviewed Patient Risk: Intermediate Procedure Risk: Low Anesthetic Plan Anesthetic Plan: MAC: Disposition: Standard PACU
[2025-03-03 13:58] VITALS: BMI 36.3
[2025-03-05 10:40] VITALS: BMI 36.1
[2025-03-05 10:51] VITALS: BP 134/70; PULSE 86; RESP 20; TEMP 37.1; O2SAT 97
[2025-03-05 13:35] VITALS: BP 107/69; PULSE 100; RESP 18; TEMP 36.6; O2SAT 95
--- NOTE | 2025-03-05 13:37 | P.BOP_ITS ---
Brief Operative Note Date of Service: 03/05/25 Pre-op diagnosis: Screening Post-op diagnosis: other (Diverticulosis) Procedure: Colonoscopy to the cecum Surgeon: Marco Buchanan MD Anesthesia: MAC Was an Information Manager used for this Procedure?: No Estimated blood loss (mL): 0 Pathology: none sent Condition: stable Disposition: PACU
[2025-03-05 13:50] VITALS: BP 128/95; PULSE 95; RESP 16; TEMP 36.6; O2SAT 94
--- NOTE | 2025-03-05 21:27 | OP_ITS ---
DATE OF SERVICE: 03/05/2025 SURGEON: Marco Buchanan MD INDICATIONS: The patient presents for evaluation of colorectal cancer screening. Full consent has been obtained from him for this, including risks of bleeding and perforation. PREOPERATIVE DIAGNOSIS: Colorectal cancer screening. POSTOPERATIVE DIAGNOSIS: PROCEDURE PERFORMED: Colonoscopy to the cecum. ESTIMATED BLOOD LOSS: COMPLICATIONS: ANESTHESIA: Medication used, monitored anesthesia care. ASSISTANTS: SPECIMENS: POSTOPERATIVE DIAGNOSES: Colorectal cancer screening, mild diverticulosis, internal hemorrhoids. DESCRIPTION OF PROCEDURE: The patient was placed in the left lateral decubitus position. The digital rectal exam revealed no abnormalities. The Olympus video pediatric colonoscope was entered into the rectum and advanced easily to the cecum. In the cecum, I did identify normal-appearing cecal pouch with appendiceal orifice and a normal-appearing ileocecal valve. The entire cecum and ileocecal valve appeared normal. The appendiceal orifice appeared normal. The scope was slowly withdrawn assessing all mucosal surfaces carefully. Preparation was excellent. I did not visualize any sign of polyps, colitis, or angiodysplasia. There was a mild amount of sigmoid diverticulosis. In the rectum, scope was retroflexed visualizing internal hemorrhoids, but no other pathology. The rectal mucosa appeared normal. The scope was straightened and withdrawn from the patient. He tolerated the procedure well and was returned to the recovery area in stable condition. IMPRESSION: 1. Diverticulosis. 2. Internal hemorrhoids Plan: Given the negative colonoscopy and no family history of colon cancer, I would recommend a followup coloscopy in 10 years for further screening. He will otherwise see me as needed. Marco Buchanan MD RMW/MODL / [id number] MTDNicol
== END 2025-03-05 14:10 | disposition home or self-care (01) ==
PROVIDERS: PCP Nurse Practitioner Family; Visit Provider Internal Medicine
PROC: 0DJD8ZZ Inspection of Lower Intestinal Tract, Via Natural or Artificial Opening Endoscopic (ICD-10-PCS; CPT 45378; principal; 2025-03-05 11:30)
DX: Z12.11 Encounter for screening for malignant neoplasm of colon (principal); K57.30 Diverticulosis of large intestine without perforation or abscess without bleeding; K64.8 Other hemorrhoids; I10 Essential (primary) hypertension; Q66.70 Congenital pes cavus, unspecified foot; Z86.79 Personal history of other diseases of the circulatory system; Z79.899 Other long term (current) drug therapy; Z98.890 Other specified postprocedural states
CPT/HCPCS: 45378; J2003; J2704; J3010

== ENCOUNTER 2025-04-01 06:02 | Outpatient (REF) | payer OTHER, SELFPAY ==
--- OUTSIDE RECORDS SUMMARY | 2024-08-26 10:40 | XMS_ITS ---
Author Organization [facility] Address [address] [place] [address] Care Team Providers Care Electro Optical Engineer Name Role Phone STEVE LEVY Primary Care Provider Marco Caceres [phone] REASON FOR VISIT Patient presents today for a screening colon Encounters Encounter Location Date Provider Diagnosis [facility] [address] [address] 08/26/2024 Marco Buchanan Plan Of Treatment No Information Progress Notes * RANDY JOYADOB:1960 ( 64 yo M)Acc No.[id number]:08/26/2024 Progress Notes Patient: RANDY DUMONT Provider: Maury Buchanan MD :1960 A ge:63 Y S ex:Male Date:08/26/2024 Address:[address] [place], [place] [phone] Pcp:STEVE LEVY Subjective: * Chief Complaints: * P atient presents today for a screening colon Billing Information: * Procedure Codes: * The named appointment provid er may or may not be the originator of this progress note, and it is not deemed complete until electronically signed by the appointment provider. Sign off status: Pending * Provider: Maury Buchanan MD Date: 0 08/26/2024 Generated for Naomi ruvalcaba/Fabiola/eTransmitting on: 1 06/02/2024 06:04 AM EST
--- OUTSIDE RECORDS SUMMARY | 2025-03-05 06:30 | XMS_ITS ---
Author Organization [facility] Address [address] [place] [id number] Care Team Providers Care Athletic Coordinator Name Role Phone STEVE LEVY Primary Care Provider Marco Caceres [phone] REASON FOR VISIT screening Encounters Encounter Location Date Provider Diagnosis [facility] Out[facility] [address] [place] [id number] 03/05/2025 Marco Buchanan Colon cancer scree dilcia Z12.11 Assessments Encounter Date Diagnosis (ICD Code) Assessment Notes Treatment Notes Treatment Clinical Notes Section Notes 03/05/2025 Colon cancer screening (ICD-10 - Z12.11) Plan Of Treatment Next Appt Details Follow Up: 10 YEAR FEB 2035, Reason: Progress Notes * RANDY JOYADOB:1960 ( 64 yo M)Acc No.[id number]:03/05/2025 COLON WITH MAC Patient: Pawan RANDY EDMONDS Provider: Maury Buchanan MD :1960 A ge:64 Y S ex:Male Date:03/05/2025 Address:[address] [place], [place] [address], [id number] Pcp:STEVE LEVY Subjective: * Chief Complaints: * S creening Assessment: * Assessment: 1. C olon cancer screening - Z12.11 (Primary) Plan: * Procedure Codes: 4 5378 DIAGNOSTIC [id number] INTRVL 3+YRS PTS CLNSCP [id number] RCMND FLW-UP 10 YRS DOCD * Follow Up: 1 0 YEAR FEB 2035 Billing Information: * Procedure Codes: 49501 DIAGNOSTIC COLONOSCOPY. 0529F INTRVL 3+YRS PTS CLNSCP DOCD. 0528F RCMND FLW-UP 10 YRS DOCD. * The named appointment provid er may or may not be the originator of this progress note, and it is not deemed complete until electronically signed by the appointment provider. Sign off status: Pending * Provider: Maury Buchanan MD Date: 1 05/05/2024 Generated for Naomi ruvalcaba/Fabiola/Loreitting on: 06/02/2024 06:04 AM EST
--- OUTSIDE RECORDS SUMMARY | 2025-04-01 06:04 | XMS_ITS | Patient Health Record ---
Author Organization [facility] Address [address] [place] [address] Care Team Providers Care Maintenance Worker Swimming Pool Name Role Phone STEVE LEVY Primary Care Provider Marco Caceres [phone] Allergies No Known Allergies Reason For Referral No Information Medications Medication SIG (Take, Route, Fr equency, Duration) Notes Start Date End Date Status Multivitamin Liquid Orally Active Lisinopril 5 MG Tablet 1 tablet Orally Once a day Active Immunizations Vaccine Route Administration Date Status Comme nts Influenza Unknown 12/23/2024 Refused Social History Social History Additional Details Category Social Info Options Details Miscellaneous: Marital status: 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 Section Notes: Nonsmoker; occasional alcoho l Nonsmoker; occasional alcoho l Problems Problem Type SNOMED Code ICD Code Onset Dates Problem Status W/U Status Risk Notes Problem Pre-surgery evaluation (412987914) Other specified pre-operative examination (V72.83) Active confirmed Problem Colon cancer screening (123121871) Colon cancer screening (V76.51) Active confirmed Problem Colon cancer screening (904503400) Colon cancer screening (Z12.11) Active confirmed Problem Preprocedural examination (877175817871207) Preprocedural examination (Z01.818) Active confirmed Vital Signs Temperature 98.6 degrees Fahrenheit 12/23/2024 Blood pressure diastolic 01 mm Hg 12/23/2024 Height 70 in 12/23/2024 Blood pressure systolic 001 mm Hg 12/23/2024 Weight 253 lbs 12/23/2024 BMI 36.3 kg/m2 12/23/2024 Procedures Procedure Date Ordered Date Performed Result Body Sit e COLONOSCOPY 12/23/2024 N/A Encounters Encounter Location Date Provider Diagnosis [facility] [address] [place] [id number] 03/05/2025 Marco Buchanan Colon cancer screeni ng Z12.11 [facility] [address] [place] [phone] 12/23/2024 Mraco Buchanan Colon cancer screeni ng Z12.11 and Preprocedural examination Z01.818 [facility] [address] [place] [phone] 08/26/2024 Marco Buchanan Assessments Encounter Date Diagnosis (ICD Code) Assessment Notes Treatment Notes Treatment Clinical Notes Section Notes 03/05/2025 Colon cancer screening (ICD-10 - Z12.11) 12/23/2024 Colon cancer screening (ICD-10 - Z12.11) [...] Test Test Name Order Date COLONOSCOPY 04/27/2014 Insurance Providers Payer Name Payer Address Payer Phone Subscriber Number Group Number Insured Name Patient Relationship to Insured Coverage Start Date Coverage End Date [facility] [address] [facility] [place] [id number] RANDY JOYA Self - patient is the insured Medical (General) History Medical History History ICD Code Hypertension Denies GA,DM,CVA,Lung disease,renal dise ase Cerebral aneurysm with a sub arachnoid hemorrhage---had IR for treatment of that via catheterization Screening colonoscopy was vikram baldwin in June 2014 other than a hyperplastic polyp
--- OUTSIDE RECORDS SUMMARY | 2025-04-01 06:05 | XMS_ITS | Patient Health Record ---
Author Organization [facility] Address [address] [facility] [place] [address] Care Team Providers Care Social Welfare Administrator Name Role Phone Eduardo Urena Primary Care Provider Unav ailable Black, Gill Unavailable [phone] Allergies No Known Allergies Results Component Value [...] Problem Acquired hammer toe of right foot (2014123129588940 ) Other hammer toe(s) (acquired), right foot (M20.41) Active confirmed Problem Acquired hammer toe of right foot (0078213014341690 ) Hammer toe of right foot (M20.41) Active confirmed Problem Mononeuropathy of lower limb (464065107) Neuritis of right foot (G57.91) Active confirmed Problem Localized, primary osteoarthritis of the ankle and/or foot (689249408) 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.071) Active confirmed Vital Signs Height 5ft 10in in 06/03/2024 Weight 245 lbs 06/03/2024 BMI 35.15 kg/m2 06/03/2024 Encounters Encounter Location Date Provider [facility] [address] 06/03/2024 Gill Black Pain in right foot M79.671 ; Neuritis of right foot G57.91 ; Hammer toe of right foot M20.41 and Osteoarthritis of right ankle and foot M19.071 [facility] [address] [place] [address] 04/30/2024 Gill Black Assessments Encounter Date Diagnosis [...] Order Date *Liver Function Test (LFT) 03/21/2020 91734-Sqrmjgqy Plate 03/21/2020 71113- Debride <25 sq cm 03/28/2020 Insurance Providers Payer Name Payer Address Payer Phone Subscriber Number Group Number Insured Name Patient Relationship to Insured Coverage Start Date Coverage End Date [facility] [place] [id number] Jimmy Jauregui Self - patient is the insured Medical (General) History Medical History History ICD Code Hypertension Surgical History Surgery Date(Month/Year) colonoscopy 06/2014
--- OUTSIDE RECORDS SUMMARY | 2025-04-01 06:05 | XMS_ITS | Clinical Summary ---
Author Organization [facility] Address [address] [place] [address] Phone Care Team Providers Care Shingle Catcher Name Role Phone Pcp, Unknown Primary Care [...] topic Medical Devices Not on file Insurance [facility] MELANI DAVALOSFORMERLY [facility] [id number] [address] [address] [place] [address] [facility] Care Teams Shingle Catcher Relationship Specialty Start Date End Date Pcp, Unknown PCP - General 05/04/21 Additional Source Comments The information contained in this document represents components of the legal health record. It is not the complete legal health record.[facility]
[2025-04-01 06:20] LABS: MANUAL DIFF FLAG NO
[2025-04-01 07:15] LABS: Hematocrit 45.6 % (42.0-52.0); Hemoglobin 15.4 g/dl (14.0-18.0); Imm Gran Abs Auto 0.05 X10*3/uL (0.00-0.03); Imm Gran Pct Auto 0.7 % (0.0-0.4); Lymphocytes Absolute Auto 2.3 X10*3/uL (1.2-4.9); Mean Corpuscular HGB Conc 33.8 g/dl (31.0-36.0); Mean Corpuscular Hemoglobin 29.3 pg (27.0-33.0); Mean Corpuscular Volume 86.9 fL (80.0-98.0); NRBC Abs Auto 0.000 X10*3/uL (0.0-0.012); NRBC Pct Auto 0.0 /100WBC (0.0-0.2); Platelet Count 270 X10*3/uL (160-400); Red Blood Count 5.25 X10*6/uL (4.60-5.80); White Blood Count 7.3 X10*3/uL (4.8-10.8)
[2025-04-01 07:23] LABS: Appearance Urine Clear; Glucose Urine UA Negative (Negative); PH 6.0 (5.0-9.0); Specific Gravity - Urine 1.025 (1.005-1.025)
[2025-04-01 08:01] LABS: Alanine Aminotransferase 33 U/L (0-40); Albumin Level 4.3 g/dL (3.5-5.0); Alkaline Phosphatase 96 U/L (39-117); Anion Gap 9 (12-20); Aspartate Amino Transferase 41 U/L (5-37); Blood Urea Nitrogen 20 mg/dL (9-16); Calcium 9.0 mg/dL (8.4-10.2); Carbon Dioxide 29 mmol/L (22-29); Chloride 105 mmol/L (96-108); Cholesterol 130 mg/dL (<200); Estimated Glomerular Filt Rate > 60; HDL Cholesterol 40 mg/dL (>40); Potassium 4.4 mmol/L (3.3-5.1); Sodium 139 mmol/L (135-145); Total Protein 6.9 g/dL (6.5-8.0); Triglycerides 148 mg/dL (<150)
== END 2025-04-01 06:03 ==
LOC: HO.LAB 06:02
PROVIDERS: PCP Nurse Practitioner Family; Visit Provider Nurse Practitioner Family
DX: I10 Essential (primary) hypertension (principal)
CPT/HCPCS: 36415; 80053; 80061; 81003; 84443; 85025

== ENCOUNTER 2025-04-06 12:03 | Outpatient (AMB) | payer OTHER, SELFPAY ==
--- OUTSIDE RECORDS SUMMARY | 2024-08-26 10:40 | XMS_ITS ---
Author Organization [facility] Address [address] [place] [address] Care Team Providers Care Contract Loader Name Role Phone STEVE LEVY Primary Care Provider Marco Caceres [phone] REASON FOR VISIT Patient presents today for a screening colon Encounters Encounter Location Date Provider Diagnosis [facility] [address] [address] 08/26/2024 Marco Buchanan Plan Of Treatment No Information Progress Notes * RANDY JOYADOB:1960 ( 64 yo M)Acc No.[id number]:08/26/2024 Progress Notes Patient: RANDY DUMONT Provider: Maury Buchnaan MD :1960 A ge:63 Y S ex:Male Date:08/26/2024 Address:[address] [place], [place] [address] Pcp:STEVE LEVY Subjective: * Chief Complaints: * [...] Buchanan MD Date: 0 08/26/2024 Generated for Fredoi peg/Fabiola/eTransmitting on: 1 06/07/2024 03:53 PM EST
--- OUTSIDE RECORDS SUMMARY | 2025-03-05 06:30 | XMS_ITS ---
Author Organization [facility] Address [address] [place] [phone] Care Team Providers Care Voice Over Announcer Name Role Phone STEVE LEVY Primary Care Provider Marco Caceres [phone] REASON FOR VISIT screening Encounters Encounter Location Date Provider Diagnosis [facility] Outpatient [address] [place] [id number] 03/05/2025 Marco Buchanan Colon cancer scree dilcia Z12.11 Assessments Encounter Date Diagnosis (ICD Code) Assessment Notes Treatment Notes Treatment Clinical Notes Section Notes 03/05/2025 Colon cancer screening (ICD-10 - Z12.11) Plan Of Treatment Next Appt Details Follow Up: 10 YEAR FEB 2035, Reason: Progress Notes * RANDY JOYADOB:1960 ( 64 yo M)Acc No.[id number]:03/05/2025 COLON WITH MAC Patient: Pawan RANDY EDMONDS Provider: Maury Buchanan MD :1960 A ge:64 Y S ex:Male Date:03/05/2025 Address:[address] [place], [place] [address], [phone] Pcp:STEVE LEVY Subjective: * Chief Complaints: * S creening Assessment: * Assessment: 1. C olon cancer screening - Z12.11 (Primary) Plan: * Procedure Codes: 4 5378 DIAGNOSTIC [id number] INTRVL 3+YRS PTS CLNSCP [id number] RCMND FLW-UP 10 YRS DOCD * Follow Up: 1 0 YEAR FEB 2035 Billing Information: * Procedure Codes: 51526 DIAGNOSTIC COLONOSCOPY. 0529F INTRVL 3+YRS PTS CLNSCP DOCD. 0528F RCMND FLW-UP 10 YRS DOCD. * The named appointment provid er may or may not be the originator of this progress note, and it is not deemed complete until electronically signed by the appointment provider. Sign off status: Pending * Provider: Maury Buchanan MD Date: 1 05/05/2024 Generated for Naomi ruvalcaba/Fabiola/Loreitting on: 06/07/2024 03:54 PM EST
--- NOTE | 2025-04-06 12:08 | A.OFFPC_ITS ---
Vital Signs 04/06/25 12:20 04/06/25 13:06 Weight 256 lb BP 140/82 H 128/82 Blood Pressure Location Rt brachial Rt brachial Position Sitting Sitting Respiration 16 Pulse 82 Pulse Source Pulse Oximeter Pulse Oximetry (%) 96 Intake Visit Reasons: PE Repair Department Supervisor Required: No Accompanied by: Self / Same As Patient Allergies No Known Allergies Allergy (Verified 04/06/25 12:51) Medication List - Last Reconciled 04/06/25 by [facility]I [facility] finasteride 5 mg PO DAILY 90 days lisinopril 40 mg PO DAILY Tobacco use date assessed: 04/06/25 Dental Screening Dental Screen Date: 04/06/25 Did you have a dental visit in the last 12 months?: Yes Did you have a dental problem in the last 6 months where you did not have access to dental care?: No Was dental information given to patient?: Patient has dentist HPI PE HPI Details History of Present Illness The patient is a 64 year old male presenting for a physical examination and lab review. His recent labs showed an elevation of the AST. He is obese. He has a history of ascending aorta dilation. He sees a urologist on a regular basis for urinary issues. His colon cancer screening is up to date. Health Maintenance - His colon cancer screening is up to da te. - He declined any vaccinations today. - He was educated on watching his alcoho l intake and diet due to elevated AST and obesity. - He was recommended to increase exercis e and watch portion sizes for weight management. Social History - Substance Use: The patient was educate d on monitoring alcohol consumption. - Exercise: He was recommended to increa se his level of exercise. - Diet: The patient was advised to make dietary changes and watch portion sizes. Review of Systems - Constitutional: Denies fevers and chil ls. - Eyes: Denies blurred vision. - Cardiovascular: Denies chest pain. - Respiratory: Denies shortness of breat h. - Gastrointestinal: Denies abdominal valente n. - Genitourinary: He sees urology regular ly for urinary issues. - Psychiatric: Denies suicidal or homici mario ideation. Physical Exam General: Cooperative, healthy appearing, comfortable, no acute distress and well developed, obese Orientation: Patient oriented x3 Limitations: No limitations Head: Normal to inspection Ears: Hearing grossly normal bilaterally Nose: Normal external nose present Face and sinus: Normal facial exam Eyes: Appearance normal, both eyes and all related structures Neck: Normal visual inspection and Yes full ROM Respiratory: Normal respiratory effort and able to speak in complete sentences. Clear to auscultation bilaterally Cardiovascular: Regular rate and rhythm. Normal S1 and S2, very faint systolic murmur noted GI: Normal to inspection. Soft to palpation and nontender : Testicles without masses/lesions and no hernias appreciated Skin: No rashes or lesions noted Neuro: Patient oriented x3 Extremities: Normal to inspection Results - Labs: Recent labs show an elevation of the AST. Plan 1. Elevated Aspartate Aminotransferase The patient's AST will be rechecked in approximately two months. He was educated on moderating alcohol consumption. 2. Obesity Recommended the patient work on weight loss through dietary changes, increased exercise, and watching portion sizes. 3. physical exam Discussion Notes I reviewed the patient's recent lab results, which showed an elevated AST. I educated him on the importance of moderating his alcohol intake and making dietary improvements. We will repeat the lab test in about two months to re- evaluate. Given his obesity, I recommended he focus on diet, portion control, and in creased exercise. I noted a very faint systolic murmur on exam and discussed ordering a repeat echocardiogram to monitor his known ascending aorta dilation. We confirmed his colon screening is up-to-date, and he declined any vaccinations during this visit. Patient Instructions - We will repeat your liver enzyme tests in about two months to check the AST level. - Please be mindful of the amount of alc ohol you drink. - To help with your weight, please focus on making healthy changes to your diet, watching your portion sizes, and getting more exercise. - We will order a repeat heart ultrasoun d (echocardiogram) to check on the faint heart murmur and the size of your aorta. - Your colon cancer screening is up to d ate. [facility] Medical History Pes cavus Ascending aorta dilatation HTN (hypertension) Subarachnoid hemorrhage Surgical History H/O colonoscopy Hx of prostate biopsy Social History Housing: House Patient Tobacco Use Status: Former Tobacco user e-Cigarette/Vaping Use: Never Used Second Hand Smoke Exposure: No (sister) service: No Current occupational status: employed Current occupation: FORMERLY [employer] Current occupational exposures/hazards: No Cognitive needs: No Hearing needs: No Vision needs: No Questionnaire PHQ-9 Over the last 2 weeks, how often have you been bothered by any of the following problems? 1. Little interest or pleasure in doing things: not at all 2. Feeling down, depressed, or hopeless: not at all 3. Trouble falling or staying asleep, or sleeping too much: not at all 4. Feeling tired or having little energy: not at all 5. Poor appetite or overeating: not at all 6. Feeling bad about yourself - or that you are a failure or have let yourself or your family down: not at all 7. Trouble concentrating on things, such as reading the newspaper or watching television: not at all 8. Moving or speaking so slowly that other people could have noticed. Or the opposite - being so fidgety or restless that you have been moving around a lot more than usual: not at all 9. Thoughts that you would be better off or of hurting yourself in some way: not at all Total score: 0 Depression Screening Interpretation: Negative Depression Screening Done: Yes 04233 - PHQ-9 Billing: Yes Source: Developed by Drs. Marco Strong, Krystal Cordova, Luis Ybarra and colleagues, with an educational milly from [employer]. Thrive Questionnaire Date Thrive assessed: 07/16/24 I am a: Patient What is your living situation today?: I have a steady place to live Within the past 12 months, did the food you bought not last and you didn't have the money to get more?: Never true Within the past 12 months, did you worry whether your food would run out before you got money to buy more?: Never true Do you have trouble paying for medicines?: No Do you have trouble getting transportation to medical appointments?: No Do you have trouble paying your heating and electricity bill?: No Do you have trouble taking care of your child, family member or friend?: No Do you have trouble with day-to-day activities such as bathing, preparing meals, shopping, managing finances, etc.?: No Are you currently unemployed and looking for a job?: No Are you interested in more education?: Yes Please select the resources that you would like help with: None Currently or been in a relationship where the following occur: No concerns reported THRIVE Score: 0 IRENE-7 AMB Questionnaire IRENE-7 Date IRENE - 7 assessed: 04/06/25 Feeling nervous, anxious, or on edge: 0 = Not at all Not being able to stop or control worryin = Not at all Worrying too much about different things: 0 = Not at all Trouble relaxin = Not at all Being so restless that it is hard to sit still: 0 = Not at all Becoming easily annoyed or irritable: 0 = Not at all Feeling afraid as if something awful might happen: 0 = Not at all Total IRENE-7 score (0-4 normal; 5-9 mild; 10-14 moderate; 15-21 severe): 0 Source: Developed by Drs. Marco Strong, Krystal Cordova, Luis Ybarra and colleagues, with an educational milly from [employer]. IRENE-7 Assessment Billing IRENE-7 Assessment Tool: IRENE-7 Assessment 87787 Physical exam (Primary Care) Vital Signs: Last Vital Signs Pulse 82 04/06/25 12:20 Resp 16 04/06/25 12:20 BP 140/82 H 04/06/25 12:20 Pulse Ox 96 04/06/25 12:20 Tobacco/Smoking Status: Tobacco use Status Tobacco use date assessed 04/06/25 04/06/25 12:11 Patient Tobacco Use Status Former Tobacco user 04/06/25 12:08 e-Cigarette/Vaping Use Never Used 04/06/25 12:08 PHQ-9: PHQ-9 Score PHQ-9: Total score 0 04/06/25 12:51 Depression Screening Interpretation: Negative Thrive Assessment: Date of Thrive Assessment Date Thrive assessed 07/16/24 04/06/25 12:08 Currently or been in a relationship where the following occur: No concerns reported Coding Level of Care Code Est Pt Level 3 (79146) Est Pt Prev Care 40-64y(28074) Diagnoses Elevated liver enzymes R74.8 Physical exam Z00.00 Ascending aorta dilatation I77.810 Additional Codes IRENE-7 Assessment Billing - IRENE-7 Assessment Tool: IRENE-7 Assessment 44933 ([id number]) PHQ-9 - 39348 - PHQ-9 Billing: Yes ([id number]) Assessment & Plan Assessment & Plan (1) Elevated liver enzymes: Code(s): R74.8 - Abnormal levels of other serum enzymes Category: Medical (2) Physical exam: Code(s): Z00.00 - Encounter for general adult medical examination without abnormal findings Category: Medical (3) Ascending aorta dilatation: Comment: 4.2 cm on [facility] 06/05/24 Code(s): I77.810 - Thoracic aortic ectasia Category: Medical Plan . Orders: Orders Comprehensive Met. Panel Today R74.8 - Abnormal levels of other serum enzymes CA echo transthoracic complete Today I77.810 - Thoracic aortic ectasia
[2025-04-06 12:20] VITALS: BP 140/82; PULSE 82; RESP 16; O2SAT 96
[2025-04-06 13:06] VITALS: BP 128/82
--- OUTSIDE RECORDS SUMMARY | 2025-04-06 15:54 | XMS_ITS | Patient Health Record ---
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; occasional alcoho l Nonsmoker; occasional alcoho l Problems Problem Type SNOMED Code ICD Code Onset Dates Problem Status W/U Status Risk Notes Problem Pre-surgery evaluation (656487937) Other specified pre-operative examination (V72.83) Active confirmed Problem Colon cancer screening (486413633) Colon cancer screening (V76.51) Active confirmed Problem Colon cancer screening (866956051) Colon cancer screening (Z12.11) Active confirmed Problem Preprocedural examination (664821172421125) Preprocedural examination (Z01.818) Active confirmed Vital Signs Temperature 98.6 degrees Fahrenheit 12/23/2024 Blood pressure diastolic 01 mm Hg 12/23/2024 Height 70 in 12/23/2024 Blood pressure systolic 001 mm Hg 12/23/2024 Weight 253 lbs 12/23/2024 BMI 36.3 kg/m2 12/23/2024 Procedures Procedure Date Ordered Date Performed Result Body Sit e COLONOSCOPY 12/23/2024 N/A Encounters Encounter Location Date Provider Diagnosis [facility] Outpatient [address] [place] [id number] 03/05/2025 Marco Buchanan Colon cancer screeni ng Z12.11 [facility] [address] [place] [id number] 12/23/2024 Marco Buchanan Colon cancer screeni ng Z12.11 and Preprocedural examination Z01.818 [facility] [address] [place] [id number] 08/26/2024 Marco Buchanan Assessments Encounter Date Diagnosis [...] Insured Coverage Start Date Coverage End Date [facility] [address] [facility] [place] [phone] [id number] RANDY JOYA Self - patient is the insured Medical (General) History Medical History History ICD Code Hypertension Denies ID,DM,CVA,Lung disease,renal dise ase Cerebral aneurysm with a sub arachnoid hemorrhage---had IR for treatment of that via catheterization Screening colonoscopy was vikram baldwin in June 2014 other than a hyperplastic polyp
--- OUTSIDE RECORDS SUMMARY | 2025-04-06 15:54 | XMS_ITS | Clinical Summary ---
Author Organization [facility] Address [address] [place] [phone] Phone Care Team Providers Care Take Out Waitress Name Role Phone Pcp, Unknown Primary Care [...] topic Medical Devices Not on file Insurance [facility] [place] [id number] [place] [address] [facility] Care Teams Take Out Waitress Relationship Specialty Start Date End Date Pcp, Unknown PCP - General 05/04/21 Additional Source Comments The information contained in this document represents components of the legal health record. It is not the complete legal health record.[facility]
--- OUTSIDE RECORDS SUMMARY | 2025-04-06 15:54 | XMS_ITS | Patient Health Record ---
Author Organization [facility] [place] Address [address] [facility] [place] [address] Care Team Providers Care Professor Of German Name Role Phone Eduardo Urena Primary Care Provider Unav ailable Black, Gill Unavailable [phone] Allergies No Known Allergies Results Component Value [...] Problem Acquired hammer toe of right foot (1921576704824531 ) Other hammer toe(s) (acquired), right foot (M20.41) Active confirmed Problem Acquired hammer toe of right foot (3898389155745955 ) Hammer toe of right foot (M20.41) Active confirmed Problem Mononeuropathy of lower limb (737526479) Neuritis of right foot (G57.91) Active confirmed Problem Localized, primary osteoarthritis of the ankle and/or foot (467379638) 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.071) Active confirmed Vital Signs Height 5ft 10in in 06/03/2024 Weight 245 lbs 06/03/2024 BMI 35.15 kg/m2 06/03/2024 Encounters Encounter [facility] Date [facility] [address] [facility] Gill Black Pain in right foot M79.671 ; Neuritis of right foot G57.91 ; Hammer toe of right foot M20.41 and Osteoarthritis of right ankle and foot M19.071 [facility] [place] [address] [place] [address] 04/30/2024 Gill Black Assessments Encounter Date Diagnosis [...] Order Date *Liver Function Test (LFT) 03/21/2020 44800-Vyjxseps Plate 03/21/2020 97935- Debride <25 sq cm 03/28/2020 Insurance Providers Payer Name Payer Address Payer Phone Subscriber Number Group Number Insured Name Patient Relationship to Insured Coverage Start Date Coverage End Date [facility] [place] [id number] [phone] [id number] Jimmy Jauregui Self - patient is the insured Medical (General) History Medical History History ICD Code Hypertension Surgical History Surgery Date(Month/Year) colonoscopy 06/2014
== END 2025-04-06 13:10 | disposition home or self-care (01) ==
LOC: HO.HMCC 12:04
PROVIDERS: Visit Provider Nurse Practitioner Family
DX: Z00.00 Encounter for general adult medical examination without abnormal findings (principal); R74.8 Abnormal levels of other serum enzymes; I77.810 Thoracic aortic ectasia

== ENCOUNTER → 2025-04-06 12:03 | Outpatient (BNVA) | payer OTHER, SELFPAY | PROVIDERS: Visit Provider Nurse Practitioner Family | DX: Z00.00 Encounter for general adult medical examination without abnormal findings (principal); I77.810 Thoracic aortic ectasia; R74.8 Abnormal levels of other serum enzymes | CPT/HCPCS: 96127 ==